=== PATIENT | female | born 1950 | race Caucasian/White ===

== ENCOUNTER 2022-06-06 16:45 | Inpatient (IN) | payer BC, OTHER ==
[~2022-06-06] VITALS: Ht 154.9 cm; Wt 72.6 kg
[2022-06-06 16:45] VITALS: BP_SYST 132
--- NOTE | 2022-06-06 16:50 | NUR ---
PT ON [facility] AWAITING ROOM ASSIGNMENT.
--- NOTE | 2022-06-06 17:45 | NUR ---
Patient to ER bed 4 to gown for evaluation. Side rails up.
--- NOTE | 2022-06-06 18:00 | NUR ---
PT BIB [facility] FOR INCREASED CONFUSION AND LETHARGY S/P D/C FROM [facility] FOR ELEVATED AMMONIA PER EMS REPORT.PT'S CONDTION NO IMPROVED SINCE D/C.
[2022-06-06 18:28] LABS: BASOPHILS % (AUTO) 0.5 % (0.0-2.0); EOSINOPHILS % (AUTO) 0.4 % (0.0-4.0); HEMATOCRIT 30.8 % (36-48); LYMPHOCYTES # (AUTO) 1.3 K/uL (1.0-5.5); LYMPHOCYTES % (AUTO) 22.6 % (20.5-51.5); MEAN CORPUSCULAR HEMOGLOBIN 36 pg (27-31); MEAN CORPUSCULAR HGB CONC 36 % (32-36); MEAN CORPUSCULAR VOLUME 102 fL (79.0-98.0); MONOCYTES # (AUTO) 0.6 K/uL (0.0-1.0); MONOCYTES % (AUTO) 10.4 % (1.7-9.3); NEUTROPHILS # (AUTO) 3.7 K/uL (1.8-7.7); NEUTROPHILS % (AUTO) 66.1 % (40.0-70.0); RED BLOOD CELL COUNT(AUTO) 3.03 MIL/uL (4.2-6.2); RED CELL DISTRIBUTION WIDTH 17.6 % (9.0-15.0); WHITE BLOOD COUNT (AUTO) 5.6 K/uL (4.8-10.8)
[2022-06-06 18:31] LABS: ANION GAP 8 (5-15); CALCIUM 9.6 mg/dL (8.4-11.0); CHLORIDE 102 mmol/L (98-107); CREATININE 0.44 mg/dL (0.55-1.30); GLUCOSE 129 mg/dL (70-99); INR 1.3 (0.8-1.2); PROTHROMBIN TIME 13.3 SECS (9.5-12.5); SODIUM SERUM 132 mmol/L (136-145); UREA NITROGEN, BLOOD 14 mg/dL (8-21)
[2022-06-06 18:36] LABS: ALANINE AMINOTRANSFERASE 46 U/L (12-78); ALBUMIN 2.4 g/dL (3.4-4.8); ASPARTATE AMINOTRANSFERASE 80 U/L (10-37); TOTAL BILIRUBIN 3.4 mg/dL (0.0-1.0)
[2022-06-06 18:51] LABS: PLATELET COUNT (AUTO) 57 K/uL (130-430)
[2022-06-06] MEDS ORDERED: LACTULOSE 20 GM/30 ML UDC PO ONE (19:00)
--- NOTE | 2022-06-06 20:18 | NUR ---
Admit bed requested Patient will be admitted to care of Dr.A. SALGADO. Admitted to MEDSURG unit. Diagnosis CIRRHOSIS Inpatient (Yes or No) YES Observation (Yes or No) NO Orientation concerns or request close to nursing station (Yes or No) YES Covid Status PENDING On vent or bipap NO Isolation requirements NO Needs a sitter NO From Home (Yes or if No enter name of facility) ??? Requires Dialysis (Yes or No) NO Med Rec Completed (Yes of No) PENDING
--- NOTE | 2022-06-06 21:16 | NUR ---
pt cleaned and changed into hospital gown. bed on lowest postion. pt able to state her name. on continuous cardiac monitoring. VSS. spoke to Kathy, daughter. gave me pt information. wctm. pending bed
[2022-06-06 21:29] LABS: BILIRUBIN,URINE NEGATIVE (NEGATIVE); BLOOD, URINE NEGATIVE (NEGATIVE); CLARITY/URINE CLEAR (CLEAR); COLOR,URINE YELLOW (YELLOW); GLUCOSE,URINE NEGATIVE (NEGATIVE); KETONES,URINE NEGATIVE (NEGATIVE); LEUKOCYTE ESTERASE ,URINE NEGATIVE (NEGATIVE); NITRITE, URINE NEGATIVE (NEGATIVE); PROTEIN URINE NEGATIVE (NEGATIVE)
--- NOTE | 2022-06-06 22:51 | NUR ---
Patient will be admitted to care of GUILLERMINA Fields. Admitted to medsurg unit. Will go to room 120B. Belongings list completed. Complete and up to date summary report printed. SBAR report to be given at bedside with opportunity for questions.
--- NOTE | 2022-06-06 23:04 | NUR ---
ADMISSION NOTE Received patient from ER via gurney. Patient admitted with diagnosis of CIRRHOSIS. Patient is awake, alert, oriented X 1. Patient oriented to hospital room, call light, toileting, pain management and safety-teach back done. Patient informed that that their room number is 120B. Personal belongings checked and Belongings List documented. Call light within reach.
[2022-06-06 23:16] VITALS: BP_SYST 141
[2022-06-07] VITALS: BP_SYST 130
[2022-06-07 04:00] VITALS: BP_SYST 123
--- NOTE | 2022-06-07 04:05 | NUR ---
CONSULT: CONSULT CALLED FOR DR. ELHAM PAZ IS CERTIFIED COURT/MEDICAL INTERPRETER AT THIS MOMENT I SPOKE TO WILLIAM MIGUEL REASON FOR CONSULT: CIRRHOSIS REQUESTING CONSULT: DR. NAOMI Granados RETORT FEEDER GROUND [employer]ONE PHONE NUMBER: [phone]
[2022-06-07 07:55] VITALS: BP_SYST 133
--- NOTE | 2022-06-07 08:05 | NUR ---
Opening Note Patient is laying in bed awake. A/O x3, re oriented patient to time. No apparent distress noted. Call light within reach. Safety and fall precautions in place. All needs met.
--- NOTE | 2022-06-07 10:00 | NUR ---
Note Patient's daughter at bedside. Provided updates. Patient sitting up in bed awake. No apparent distress noted. Call light within reach. Safety and fall precautions in place. All needs met.
[2022-06-07] MEDS: RIFAXIMIN 550 MG TABLET PO SCH ×2 (10:28→21:24)
[2022-06-07] MEDS: LACTULOSE 20 GM/30 ML UDC PO SCH ×3 (10:28→20:52)
[2022-06-07] MEDS ORDERED: ONDANSETRON HCL 4 MG/2 ML VIAL IVP PRN (10:30)
[2022-06-07] MEDS ORDERED: ACETAMINOPHEN 325 MG TABLET PO PRN ×2 (10:30→11:00)
[2022-06-07] MEDS ORDERED: LORazepam 2 MG/ML VIAL IVP PRN (10:30)
[2022-06-07 11:01] LABS: BASOPHILS % (AUTO) 0.7 % (0.0-2.0); EOSINOPHILS # (AUTO) 0.1 K/uL (0.0-0.4); EOSINOPHILS % (AUTO) 1.2 % (0.0-4.0); HEMATOCRIT 31.6 % (36-48); HEMOGLOBIN 11.1 g/dL (12.0-16.0); LYMPHOCYTES # (AUTO) 1.4 K/uL (1.0-5.5); LYMPHOCYTES % (AUTO) 21.2 % (20.5-51.5); MEAN CORPUSCULAR HEMOGLOBIN 36 pg (27-31); MEAN CORPUSCULAR HGB CONC 35 % (32-36); MEAN CORPUSCULAR VOLUME 103 fL (79.0-98.0); MONOCYTES # (AUTO) 0.9 K/uL (0.0-1.0); MONOCYTES % (AUTO) 14.5 % (1.7-9.3); NEUTROPHILS % (AUTO) 62.4 % (40.0-70.0); PLATELET COUNT (AUTO) 60 K/uL (130-430); RED BLOOD CELL COUNT(AUTO) 3.05 MIL/uL (4.2-6.2); RED CELL DISTRIBUTION WIDTH 18.1 % (9.0-15.0); WHITE BLOOD COUNT (AUTO) 6.4 K/uL (4.8-10.8)
[2022-06-07 11:20] LABS: ALANINE AMINOTRANSFERASE 53 U/L (12-78); ALBUMIN 2.3 g/dL (3.4-4.8); ASPARTATE AMINOTRANSFERASE 102 U/L (10-37); CALCIUM 9.1 mg/dL (8.4-11.0); CREATININE 0.74 mg/dL (0.55-1.30); GLUCOSE 162 mg/dL (70-99); TOTAL BILIRUBIN 3.9 mg/dL (0.0-1.0); UREA NITROGEN, BLOOD 10 mg/dL (8-21)
[2022-06-07 11:51] VITALS: BP_SYST 109
[2022-06-07 12:09] LABS: CHLORIDE 102 mmol/L (98-107); POTASSIUM 3.4 mmol/L (3.5-5.1); SODIUM SERUM 133 mmol/L (136-145)
[2022-06-07 12:11] LABS: ANION GAP 9 (5-15)
--- NOTE | 2022-06-07 13:20 | NUR ---
Note Spoke with Sierra from radiology, patient will be NPO after midnight.
[2022-06-07] MEDS ORDERED: NORMAL SALINE 5 ML DISP.SYRIN IVF SCH (14:00)
[2022-06-07 16:00] VITALS: BP_SYST 112
--- NOTE | 2022-06-07 16:24 | NUR ---
Dietitian Recommendations * Continue Regular diet * Encourage increase PO intakes * Yogurt TID w/ meals * No further dietary restrictions d/t suboptimal PO intakes LP, MS, RD Please refer to Nutrition Assessment for details. Addendum: 06/07/22 at [address] Amended: Links added.
--- NOTE | 2022-06-07 18:50 | NUR ---
Closing Notes Patient is sitting up in bed awake watching television. No apparent distress noted. Call light within reach. Safety and fall precautions in place. All needs met. Will endorse care to overnight babysitter GUILLERMINA salazar.
[2022-06-07] MEDS: NORMAL SALINE 5 ML DISP.SYRIN IVF SCH ×2 (19:25→21:24)
[2022-06-07 20:00] VITALS: BP_SYST 131
[2022-06-08 00:45] VITALS: BP_SYST 130
[2022-06-08 04:00] VITALS: BP_SYST 126
[2022-06-08] MEDS: NORMAL SALINE 5 ML DISP.SYRIN IVF SCH ×3 (06:12→20:53)
--- NOTE | 2022-06-08 06:29 | NUR ---
PATIENT WAS STILL A LITTLE BIT CONFUSE AD APPEARS GROGGY. AAOX2-3. APPEARS WEAK AND WOBBLY. ASLEEP AT THIS TIME. PIV INTACT AND PATENT. FLUSHING WELL. KEPT WARM AND COMFORTABLE. ALL NEEDS ATTENDED. CALL LIGHT PLACED WITHIN REACH. FAMILY CAME LAST NIGHT. SPOKE TO THE DAUGHTER AND UPDATED ABOUT THE PATIENT'S CONDITION. MONITORED CLOSELY.
[2022-06-08 07:52] LABS: ALANINE AMINOTRANSFERASE 49 U/L (12-78); ALBUMIN 2.2 g/dL (3.4-4.8); ANION GAP 7 (5-15); ASPARTATE AMINOTRANSFERASE 99 U/L (10-37); CALCIUM 9.1 mg/dL (8.4-11.0); CHLORIDE 104 mmol/L (98-107); CREATININE 0.48 mg/dL (0.55-1.30); GLUCOSE 100 mg/dL (70-99); POTASSIUM 3.4 mmol/L (3.5-5.1); SODIUM SERUM 136 mmol/L (136-145); UREA NITROGEN, BLOOD 10 mg/dL (8-21)
[2022-06-08 07:55] LABS: BASOPHILS % (AUTO) 0.9 % (0.0-2.0); EOSINOPHILS # (AUTO) 0.1 K/uL (0.0-0.4); EOSINOPHILS % (AUTO) 1.2 % (0.0-4.0); HEMATOCRIT 28.9 % (36-48); HEMOGLOBIN 10.4 g/dL (12.0-16.0); LYMPHOCYTES # (AUTO) 1.6 K/uL (1.0-5.5); LYMPHOCYTES % (AUTO) 32.2 % (20.5-51.5); MEAN CORPUSCULAR HEMOGLOBIN 36 pg (27-31); MEAN CORPUSCULAR HGB CONC 36 % (32-36); MEAN CORPUSCULAR VOLUME 101 fL (79.0-98.0); MONOCYTES # (AUTO) 0.7 K/uL (0.0-1.0); MONOCYTES % (AUTO) 14.6 % (1.7-9.3); NEUTROPHILS # (AUTO) 2.5 K/uL (1.8-7.7); NEUTROPHILS % (AUTO) 51.1 % (40.0-70.0); PLATELET COUNT (AUTO) 54 K/uL (130-430); RED BLOOD CELL COUNT(AUTO) 2.85 MIL/uL (4.2-6.2); RED CELL DISTRIBUTION WIDTH 17.3 % (9.0-15.0)
[2022-06-08 08:10] VITALS: BP_SYST 115
--- NOTE | 2022-06-08 08:10 | NUR ---
Opening Notes Patient is sitting up in bed awake. A/O x3, re-oriented patient to time. No apparent distress noted. Call light within reach. Safety and fall precautions in place. All needs met. Received report from Trenton SARMIENTO.
[2022-06-08] MEDS: LACTULOSE 20 GM/30 ML UDC PO SCH ×3 (10:02→20:52)
[2022-06-08] MEDS: RIFAXIMIN 550 MG TABLET PO SCH ×2 (10:02→20:52)
[2022-06-08 11:06] LABS: HEPATITIS A AB, IgM Negative (Negative); HEPATITIS B CORE AB, IgM Negative (Negative); HEPATITIS B SURFACE AG Negative (Negative)
[2022-06-08 12:00] VITALS: BP_SYST 125
[2022-06-08 16:00] VITALS: BP_SYST 115
--- NOTE | 2022-06-08 18:45 | NUR ---
Closing Notes Assisted patient with hygiene needs throughout shift. Patient is sitting up in bed awake. Family at bedside. Call light within reach. Safety and fall precautions in place. All needs met. Will endorse care to doughmaker RN.
--- NOTE | 2022-06-08 18:58 | NUR ---
PHYSICAL THERAPY CO-SIGN The Physical Therapy Progress Notes documented by Extractor Plant Operator have been reviewed. Reviewed/Co-Signed by: Ember Humphries PT Documentation Done by:STACI CARLSON MOLECULAR BIOLOGY SCIENTIST Addendum: 06/08/22 at 1858 by Ember Humphries PT Amended: Links added.
[2022-06-08 20:00] VITALS: BP_SYST 120
[2022-06-09] VITALS: BP_SYST 107
[2022-06-09 04:00] VITALS: BP_SYST 110
--- NOTE | 2022-06-09 05:59 | NUR ---
PATIENT APPEARS WEAK. ASSISTED BY FIELD MARKETING REPRESENTATIVE TO THE RESTROOM. SLEPT LATE LAST NIGHT. STABLE. NO DISTRESS OR DISCOMFORT NOTED. SL IN PLACE, INTACT AND FLUSHING WELL. KEPT WARM AND COMFORTABLE. ALL NEEDS ATTENDED. CALL LIGHT PLACED WITHIN REACH. FALL AND SAFETY PRECAUTION REINFORCED. MONITORED CLOSELY.
[2022-06-09] MEDS: NORMAL SALINE 5 ML DISP.SYRIN IVF SCH ×3 (06:04→21:13)
[2022-06-09 07:21] LABS: BASOPHILS # (AUTO) 0.1 K/uL (0.0-0.2); BASOPHILS % (AUTO) 1.1 % (0.0-2.0); EOSINOPHILS # (AUTO) 0.1 K/uL (0.0-0.4); EOSINOPHILS % (AUTO) 1.2 % (0.0-4.0); HEMATOCRIT 28.5 % (36-48); HEMOGLOBIN 10.2 g/dL (12.0-16.0); LYMPHOCYTES # (AUTO) 1.8 K/uL (1.0-5.5); MEAN CORPUSCULAR HEMOGLOBIN 36 pg (27-31); MEAN CORPUSCULAR HGB CONC 36 % (32-36); MEAN CORPUSCULAR VOLUME 102 fL (79.0-98.0); MONOCYTES # (AUTO) 0.9 K/uL (0.0-1.0); MONOCYTES % (AUTO) 15.9 % (1.7-9.3); NEUTROPHILS # (AUTO) 2.9 K/uL (1.8-7.7); NEUTROPHILS % (AUTO) 50.8 % (40.0-70.0); PLATELET COUNT (AUTO) 62 K/uL (130-430); RED CELL DISTRIBUTION WIDTH 17.8 % (9.0-15.0); WHITE BLOOD COUNT (AUTO) 5.7 K/uL (4.8-10.8)
[2022-06-09 08:12] VITALS: BP_SYST 131
[2022-06-09 08:25] LABS: ALANINE AMINOTRANSFERASE 47 U/L (12-78); ALBUMIN 2.1 g/dL (3.4-4.8); ANION GAP 7 (5-15); ASPARTATE AMINOTRANSFERASE 97 U/L (10-37); CHLORIDE 104 mmol/L (98-107); CREATININE 0.53 mg/dL (0.55-1.30); GLUCOSE 113 mg/dL (70-99); POTASSIUM 3.6 mmol/L (3.5-5.1); SODIUM SERUM 136 mmol/L (136-145); TOTAL BILIRUBIN 2.8 mg/dL (0.0-1.0); UREA NITROGEN, BLOOD 15 mg/dL (8-21)
[2022-06-09] MEDS: LACTULOSE 20 GM/30 ML UDC PO SCH ×3 (08:52→21:11)
[2022-06-09] MEDS: RIFAXIMIN 550 MG TABLET PO SCH ×2 (10:14→21:12)
[2022-06-09 12:02] VITALS: BP_SYST 128
[2022-06-09 12:04] VITALS: BP_SYST 129
--- NOTE | 2022-06-09 13:45 | NUR ---
DC PLANNING Order for dc home with home health. Spoke with pt at bedside & discussed dc planning does not want SNF. Is agreeable with home health with no preference. States her dtr is at home & will assist her at home, has fww. This am faxed order to [facility] & received msfranco Sherwood CM aware & working on home health. Later in afternoon received updated home health order & faxed to [facility]. [facility] AT[facility]INSON today Arabella, ph [phone]. Addendum: 06/09/22 at 1423 by Nickie Tim RN Received call from [facility] [place], working on home health, order for dc planning for home with home health not dc home with home health.
[2022-06-09 18:39] VITALS: BP_SYST 125
--- NOTE | 2022-06-10 07:21 | NUR ---
PHYSICAL THERAPY CO-SIGN The Physical Therapy Progress Notes documented by Chemical Unit Operator have been reviewed. Reviewed/Co-Signed by: Jimmie Rowland Documentation Done by: RISHABH CARLSON PTA Addendum: 06/10/22 at 0721 by Jimmie Rowland PT Amended: Links added.
[2022-06-10 08:00] VITALS: BP_SYST 121
[2022-06-10] MEDS: LACTULOSE 20 GM/30 ML UDC PO SCH (09:01)
[2022-06-10] MEDS: RIFAXIMIN 550 MG TABLET PO SCH (09:02)
[2022-06-10 09:25] LABS: BASOPHILS # (AUTO) 0.1 K/uL (0.0-0.2); BASOPHILS % (AUTO) 1.3 % (0.0-2.0); EOSINOPHILS # (AUTO) 0.1 K/uL (0.0-0.4); EOSINOPHILS % (AUTO) 1.6 % (0.0-4.0); HEMATOCRIT 30.1 % (36-48); HEMOGLOBIN 10.5 g/dL (12.0-16.0); LYMPHOCYTES # (AUTO) 1.8 K/uL (1.0-5.5); LYMPHOCYTES % (AUTO) 32.9 % (20.5-51.5); MEAN CORPUSCULAR HEMOGLOBIN 36 pg (27-31); MEAN CORPUSCULAR HGB CONC 35 % (32-36); MEAN CORPUSCULAR VOLUME 103 fL (79.0-98.0); MONOCYTES # (AUTO) 0.8 K/uL (0.0-1.0); MONOCYTES % (AUTO) 14.7 % (1.7-9.3); NEUTROPHILS # (AUTO) 2.7 K/uL (1.8-7.7); NEUTROPHILS % (AUTO) 49.5 % (40.0-70.0); PLATELET COUNT (AUTO) 65 K/uL (130-430); RED BLOOD CELL COUNT(AUTO) 2.94 MIL/uL (4.2-6.2); RED CELL DISTRIBUTION WIDTH 17.7 % (9.0-15.0); WHITE BLOOD COUNT (AUTO) 5.5 K/uL (4.8-10.8)
[2022-06-10 10:17] LABS: ALANINE AMINOTRANSFERASE 57 U/L (12-78); ALBUMIN 2.1 g/dL (3.4-4.8); ANION GAP 7 (5-15); ASPARTATE AMINOTRANSFERASE 139 U/L (10-37); CALCIUM 8.8 mg/dL (8.4-11.0); CHLORIDE 104 mmol/L (98-107); CREATININE 0.45 mg/dL (0.55-1.30); GLUCOSE 95 mg/dL (70-99); POTASSIUM 4.2 mmol/L (3.5-5.1); SODIUM SERUM 134 mmol/L (136-145); TOTAL BILIRUBIN 2.8 mg/dL (0.0-1.0); UREA NITROGEN, BLOOD 17 mg/dL (8-21)
[2022-06-10] MEDS ORDERED: RIFA550T5 PO (11:24)
[2022-06-10] MEDS ORDERED: Lactulose PO (11:24)
[2022-06-10 12:00] VITALS: BP_SYST 120
[2022-06-10 15:19] VITALS: BP_SYST 113
--- NOTE | 2022-06-10 16:00 | NUR ---
D/C Patient Patient given medication reconciliation form and D/C instructions. Exit Care provided, all needs met throughout shift. Patient verbalized understanding. Ambulatory with steady gait for discharge to home. Patient in stable condition, ID band removed. IV catheter removed, intact and dressing applied, no active bleeding. Patient educated on pain management. All belongings sent with patient.
--- NOTE | 2022-06-13 07:00 | NUR ---
PHYSICAL THERAPY CO-SIGN The Physical Therapy Progress Notes documented by Filter Tip Inspector have been reviewed. Reviewed/Co-Signed by: Jimmie Rowland Documentation Done by: RISHABH CARLSON PTA Addendum: 06/13/22 at 0701 by Jimmie Rowland PT Amended: Links added.
== END 2022-06-10 16:05 | disposition home health service (06) | DRG 441 ==
LOC: SED 16:45 → SMU 19:39
PROVIDERS: ADMIT Preventive Medicine Preventive Medicine/Occupational Environmental Medicine; ATTEND Preventive Medicine Preventive Medicine/Occupational Environmental Medicine
DX: K72.90 Hepatic failure, unspecified without coma (principal); E43 Unspecified severe protein-calorie malnutrition; D68.59 Other primary thrombophilia; E87.1 Hypo-osmolality and hyponatremia; B19.20 Unspecified viral hepatitis C without hepatic coma; D69.6 Thrombocytopenia, unspecified; E87.6 Hypokalemia; K74.60 Unspecified cirrhosis of liver; Z20.822 Contact with and (suspected) exposure to COVID-19; R73.9 Hyperglycemia, unspecified; E66.9 Obesity, unspecified; D64.9 Anemia, unspecified; E88.09 Other disorders of plasma-protein metabolism, not elsewhere classified; Z79.899 Other long term (current) drug therapy; Z68.30 Body mass index [BMI] 30.0-30.9, adult
CPT/HCPCS: 36415; 70450-TC; 76376; 76700-TC; 80053; 80074; 81003; 82105; 82140; 83605; 85025; 85610-TC; 93005; 97110-GP; 97116-GP; 97530-GP; 99285

== ENCOUNTER 2022-07-12 19:04 | Inpatient (IN) | payer OTHER ==
[~2022-07-12] VITALS: Ht 154.9 cm; Wt 77.1 kg
[~2022-07-12 19:04] MED LIST: Lactulose PO; RIFA550T5 PO
[2022-07-12 20:02] VITALS: BP_SYST 129
--- NOTE | 2022-07-12 20:19 | NUR ---
Pt c/o abd pain with nausea and some dizziness, denies vomiting or diarrhea. Pt c/o abd "bloating" as well. EKG done in triage. Pt waiting in waiting room with family members. MD assessed pt in triage.
[2022-07-12 20:42] LABS: ALANINE AMINOTRANSFERASE 26 U/L (12-78); ALBUMIN 2.2 g/dL (3.4-4.8); ANION GAP 5 (5-15); ASPARTATE AMINOTRANSFERASE 67 U/L (10-37); CALCIUM 9.1 mg/dL (8.4-11.0); CHLORIDE 106 mmol/L (98-107); CREATININE 0.68 mg/dL (0.55-1.30); GLUCOSE 92 mg/dL (70-99); LIPASE 200 U/L (73-393); POTASSIUM 3.9 mmol/L (3.5-5.1); SODIUM SERUM 138 mmol/L (136-145); TOTAL BILIRUBIN 3.5 mg/dL (0.0-1.0); UREA NITROGEN, BLOOD 12 mg/dL (8-21)
[2022-07-12 20:43] LABS: BASOPHILS % (AUTO) 0.8 % (0.0-2.0); EOSINOPHILS # (AUTO) 0.1 K/uL (0.0-0.4); EOSINOPHILS % (AUTO) 2.2 % (0.0-4.0); HEMATOCRIT 31.7 % (36-48); LYMPHOCYTES # (AUTO) 1.6 K/uL (1.0-5.5); LYMPHOCYTES % (AUTO) 34.7 % (20.5-51.5); MEAN CORPUSCULAR HEMOGLOBIN 36 pg (27-31); MEAN CORPUSCULAR HGB CONC 35 % (32-36); MEAN CORPUSCULAR VOLUME 105 fL (79.0-98.0); MONOCYTES # (AUTO) 0.7 K/uL (0.0-1.0); NEUTROPHILS # (AUTO) 2.2 K/uL (1.8-7.7); NEUTROPHILS % (AUTO) 47.3 % (40.0-70.0); PLATELET COUNT (AUTO) 58 K/uL (130-430); RED BLOOD CELL COUNT(AUTO) 3.03 MIL/uL (4.2-6.2); RED CELL DISTRIBUTION WIDTH 19.4 % (9.0-15.0); WHITE BLOOD COUNT (AUTO) 4.7 K/uL (4.8-10.8)
--- NOTE | 2022-07-12 23:29 | NUR ---
Dr. Kerr at bedside for evaluation.
[2022-07-12] MEDS ORDERED: ONDANSETRON HCL 4 MG/2 ML VIAL IVP ONE (23:45)
[2022-07-12] MEDS ORDERED: NS 250 ML IV ONE (23:45)
[2022-07-12] MEDS ORDERED: MORPHINE 4 MG INJ. 4 MG/ML VIAL IVP ONE (23:45)
[2022-07-13] MEDS ORDERED: cefTRIAXone 2 GM VIAL ONE (00:21)
--- NOTE | 2022-07-13 00:40 | NUR ---
Pt pain addressed. Pt medicated per MD order. No signs of resp distress and even and unlabored respirations. Safety precautions in place.
[2022-07-13] MEDS ORDERED: NS 500 ML IV ONE (01:30)
--- NOTE | 2022-07-13 01:33 | NUR ---
Urine collected and sent to lab.
[2022-07-13 02:02] LABS: BILIRUBIN,URINE 1+ (NEGATIVE); BLOOD, URINE NEGATIVE (NEGATIVE); COLOR,URINE YELLOW (YELLOW); GLUCOSE,URINE NEGATIVE (NEGATIVE); KETONES,URINE TRACE (NEGATIVE); LEUKOCYTE ESTERASE ,URINE 1+ (NEGATIVE); NITRITE, URINE NEGATIVE (NEGATIVE); PH,URINE 5.5 (5.0-8.0); PROTEIN URINE NEGATIVE (NEGATIVE); UROBILINOGEN,URINE 0.2 (0.2-1.0)
[2022-07-13 02:13] LABS: CLARITY/URINE HAZY (CLEAR)
[2022-07-13 02:15] LABS: BACTERIA,URINE MANY /HPF (None Seen); RBC,URINE 0-3 /HPF (0-3)
--- NOTE | 2022-07-13 03:15 | NUR ---
Pt ambulated to restroom with ease. Now back in bed with safety precautions in place. Pt now resting in bed. No signs of resp distress. Even and unloabored respirations.
[2022-07-13] MEDS ORDERED: LACT10SO6 PO (03:53)
[2022-07-13] MEDS ORDERED: RIFA200T10 PO (03:53)
[2022-07-13] MEDS ORDERED: LEVO25TA7 PO (03:53)
--- NOTE | 2022-07-13 04:34 | NUR ---
Admit bed requested Patient will be admitted to care of Dr. Whitten Admitted to Tele unit. Diagnosis Cirrhosis Inpatient (Yes or No) yes Observation (Yes or No) no Orientation concerns or request close to nursing station (Yes or No) no Covid Status negative On vent or bipap no Isolation requirements no Needs a sitter no From Home (Yes or if No enter name of facility) yes Requires Dialysis (Yes or No) no Med Rec Completed (Yes of No) yes
[2022-07-13] MEDS ORDERED: ONDANSETRON HCL 4 MG/2 ML VIAL IVP PRN (04:45)
--- NOTE | 2022-07-13 06:05 | NUR ---
Patient will be admitted to care of Dr. Whitten. Admitted to telemetry unit. Will go to room 112B. Belongings list completed. Complete and up to date summary report printed. SBAR report given to Veronica SARMIENTO at bedside with opportunity for questions.
[2022-07-13 06:21] VITALS: BP_SYST 154
[2022-07-13 08:00] VITALS: BP_SYST 119
[2022-07-13] MEDS: MORPHINE 2 MG/ML INJ. SYRINGE IVP PRN ×3 (08:08→21:19)
--- NOTE | 2022-07-13 10:39 | NUR ---
CONSULTATION PAGED REASON FOR CONSULTATION:ABDOMIBNAL PAIN WAS CONSULT CALLED?Y -PERSON WHO WAS NOTIFIED:KENYA CONSULTING PHYSICIAN:REJI NICOLE (ANA BURCIAGA CARDIOPULMONARY TECHNOLOGIST) COBBLER APPRENTICE SPECIALTY:GI COBBLER APPRENTICE PHONE NUMBER:[phone] REQUESTING PHYSICIAN:JACK ENCARNACION
[2022-07-13 11:27] VITALS: BP_SYST 114
[2022-07-13] MEDS ORDERED: PANTOPRAZOLE SODIUM 40 MG TAB PO ONE (12:00)
[2022-07-13] MEDS ORDERED: DICYCLOMINE HCL 10 MG CAPSULE PO ONE ×2 (12:00→21:00)
[2022-07-13] MEDS ORDERED: SUCRALFATE 1 GM TABLET PO ONE (12:15)
[2022-07-13] MEDS ORDERED: SUCR1TAB78 PO (12:31)
[2022-07-13 14:10] VITALS: BP_SYST 114
[2022-07-13] MEDS: SUCRALFATE 1 GM TABLET PO SCH ×2 (15:40→21:18)
[2022-07-13 16:35] VITALS: BP_SYST 138
[2022-07-13 20:00] VITALS: BP_SYST 116
[2022-07-14] MEDS ORDERED: cefTRIAXone 1 GM IVPB PREMIX 50 ML IV SCH (01:00)
[2022-07-14] MEDS: MORPHINE 2 MG/ML INJ. SYRINGE IVP PRN ×3 (01:29→09:48)
[2022-07-14 06:39] VITALS: BP_SYST 118
--- NOTE | 2022-07-14 06:43 | NUR ---
CLOSING NOTE PATIENT IN BED, RESTING AT THIS TIME. NO S/S OF ACUTE DISTRESS. BREATHING EVEN AND UNLABORED. IV SITE IS PATENT, NO SIGNS OF INFILTRATION OR INFECTION NOTED. ALL NEEDS MET THROUGHOUT SHIFT. FALL, SAFETY PRECAUTIONS MAINTAINED THROUGHOUT SHIFT. WILL CONTINUE TO MONITOR UNTIL PATIENT CARE IS ENDORSED TO ONCOMING DAYSHIFT NURSE.
[2022-07-14 08:00] VITALS: BP_SYST 101
[2022-07-14 08:09] LABS: BASOPHILS % (AUTO) 0.8 % (0.0-2.0); EOSINOPHILS # (AUTO) 0.1 K/uL (0.0-0.4); EOSINOPHILS % (AUTO) 2.9 % (0.0-4.0); HEMATOCRIT 28.5 % (36-48); HEMOGLOBIN 10.2 g/dL (12.0-16.0); LYMPHOCYTES # (AUTO) 1.6 K/uL (1.0-5.5); LYMPHOCYTES % (AUTO) 38.9 % (20.5-51.5); MEAN CORPUSCULAR HEMOGLOBIN 38 pg (27-31); MEAN CORPUSCULAR HGB CONC 36 % (32-36); MEAN CORPUSCULAR VOLUME 105 fL (79.0-98.0); MONOCYTES # (AUTO) 0.5 K/uL (0.0-1.0); MONOCYTES % (AUTO) 12.6 % (1.7-9.3); NEUTROPHILS # (AUTO) 1.9 K/uL (1.8-7.7); NEUTROPHILS % (AUTO) 44.8 % (40.0-70.0); PLATELET COUNT (AUTO) 50 K/uL (130-430); RED BLOOD CELL COUNT(AUTO) 2.72 MIL/uL (4.2-6.2); RED CELL DISTRIBUTION WIDTH 18.7 % (9.0-15.0); WHITE BLOOD COUNT (AUTO) 4.1 K/uL (4.8-10.8)
[2022-07-14 08:20] LABS: ALANINE AMINOTRANSFERASE 24 U/L (12-78); ALBUMIN 1.9 g/dL (3.4-4.8); ANION GAP 2 (5-15); ASPARTATE AMINOTRANSFERASE 65 U/L (10-37); CALCIUM 8.8 mg/dL (8.4-11.0); CHLORIDE 105 mmol/L (98-107); CREATININE 0.62 mg/dL (0.55-1.30); GLUCOSE 99 mg/dL (70-99); SODIUM SERUM 138 mmol/L (136-145); TOTAL BILIRUBIN 3.3 mg/dL (0.0-1.0); UREA NITROGEN, BLOOD 7 mg/dL (8-21)
[2022-07-14] MEDS ORDERED: PANTOPRAZOLE SODIUM 40 MG TAB PO SCH (09:00)
[2022-07-14] MEDS: SUCRALFATE 1 GM TABLET PO SCH ×2 (09:46→16:31)
[2022-07-14 12:00] VITALS: BP_SYST 115
[2022-07-14 15:36] VITALS: BP_SYST 115
== END 2022-07-14 17:00 | disposition home or self-care (01) | DRG 433 ==
LOC: SED 19:04 → STU 07-13 04:31
PROVIDERS: ADMIT Internal Medicine; ATTEND Internal Medicine
DX: K70.31 Alcoholic cirrhosis of liver with ascites (principal); E44.0 Moderate protein-calorie malnutrition; K52.9 Noninfective gastroenteritis and colitis, unspecified; Z20.822 Contact with and (suspected) exposure to COVID-19; E03.9 Hypothyroidism, unspecified; E78.5 Hyperlipidemia, unspecified; Z80.0 Family history of malignant neoplasm of digestive organs; Z90.49 Acquired absence of other specified parts of digestive tract
CPT/HCPCS: 36415; 76376; 80053; 81000; 83690; 84484; 85025; 87040; 87086; 87186-TC; 93005; 96365; 96375; 99285; G0378; J0696; J2270; J2405

== ENCOUNTER 2023-03-16 14:12 | Inpatient (IN) | payer OTHER ==
[~2023-03-16] VITALS: Ht 154.9 cm; Wt 74.8 kg
[~2023-03-16 14:12] MED LIST changes: +HYDR-3908 PO; +LEVO25TA7 PO; -Lactulose PO; +RIFA200T10 PO; +SUCR1TAB2 PO
--- NOTE | 2023-03-16 14:15 | NUR ---
Placed in room 08 . Placed on ekg monitor, blood pressure machine and pulse oximeter. To gown for exam. Side rails up.
[2023-03-16 14:20] VITALS: BP_SYST 94
--- NOTE | 2023-03-16 14:20 | NUR ---
Pt BIB ambulance from home. C/O L hip pain and L arm pain related to mechanical fall from home 2 days ago and today. Pt states to have taken a norco an hour ago. NS started by paramedics en route to hospital. Glucose check 97. Pt AAOX4. Pt speaking full complete sentences. Skin dry and intact. Pt in bed in gown with side rails up. BP 94/47 at this time.
--- NOTE | 2023-03-16 14:20 | NUR ---
Christel kennedy in [facility] - 03/16/23 at 1628 by SDEDAFJ Placed in room 08 . Placed on ekg monitor tech, blood pressure machine and pulse oximeter. To gown for exam. Side rails up.
[2023-03-16] MEDS ORDERED: LACT10SO6 PO (14:27)
[2023-03-16] MEDS ORDERED: MECL-160 PO (14:27)
[2023-03-16] MEDS ORDERED: SPIR50TA5 PO (14:27)
[2023-03-16] MEDS ORDERED: TRAZ50TA54 (14:29)
[2023-03-16] MEDS ORDERED: FERR325T30 (14:29)
[2023-03-16 14:40] LABS: HEMATOCRIT 27.8 % (36-48); HEMOGLOBIN 9.2 g/dL (12.0-16.0); MEAN CORPUSCULAR HEMOGLOBIN 35 pg (27-31); MEAN CORPUSCULAR HGB CONC 33 % (32-36); MEAN CORPUSCULAR VOLUME 104 fL (79.0-98.0); RED BLOOD CELL COUNT(AUTO) 2.68 MIL/uL (4.2-6.2); RED CELL DISTRIBUTION WIDTH 21.6 % (9.0-15.0); WHITE BLOOD COUNT (AUTO) 16.3 K/uL (4.8-10.8)
[2023-03-16 14:52] LABS: ANION GAP 11 (5-15); CALCIUM 8.7 mg/dL (8.4-11.0); CHLORIDE 105 mmol/L (98-107); CREATININE 1.68 mg/dL (0.55-1.30); GLUCOSE 112 mg/dL (70-99); UREA NITROGEN, BLOOD 63 mg/dL (8-21)
[2023-03-16 14:53] LABS: INR 2.1 (0.8-1.2); PROTHROMBIN TIME 21.2 SECS (9.5-12.5)
[2023-03-16 14:54] LABS: PLATELET COUNT (AUTO) 37 K/uL (130-430)
[2023-03-16 15:09] LABS: BAND % (MANUAL) 19 % (0-6); BASOPHILS % (MANUAL) 0 % (0-2); EOSINOPHILS % (MANUAL) 0 % (0-7); LYMPHOCYTES % (MANUAL) 2 % (20-46); MONOCYTES % (MANUAL) 7 % (0-11)
[2023-03-16 15:11] LABS: ALANINE AMINOTRANSFERASE 213 U/L (12-78); ALBUMIN 1.6 g/dL (3.4-4.8); ASPARTATE AMINOTRANSFERASE 248 U/L (10-37); FREE T4 (FREE THYROXINE) 1.6 ng/dL (0.6-1.6); THYROID STIMULATING HORMONE 0.63 uIu/mL (0.34-4.82); TOTAL BILIRUBIN 6.3 mg/dL (0.0-1.0)
--- NOTE | 2023-03-16 15:19 | NUR ---
Dr Badillo notified about pt's lactic acid 5.6 and WBC 16.3, requested fluids and antibiotics, per Dr Badillo due to Hx of cirrhosis , no fluids needed at this time, awaiting for antibiotics order, will cont to monitor.
[2023-03-16] MEDS ORDERED: PIPERACILLIN/TAZO 4.5GM/DEX-IS 100 ML IV SCH (15:30)
[2023-03-16] MEDS ORDERED: ALBUMIN HUMAN 5% 250 ML IV ONE (15:30)
[2023-03-16 15:40] LABS: BILIRUBIN,URINE 2+ (NEGATIVE); CLARITY/URINE CLOUDY (CLEAR); COLOR,URINE ORANGE (YELLOW); GLUCOSE,URINE TRACE (NEGATIVE); KETONES,URINE TRACE (NEGATIVE); LEUKOCYTE ESTERASE ,URINE TRACE (NEGATIVE); NITRITE, URINE POSITIVE (NEGATIVE); PROTEIN URINE TRACE (NEGATIVE)
[2023-03-16 15:46] LABS: BLOOD, URINE TRACE (NEGATIVE)
[2023-03-16] MEDS ORDERED: PIPERACILLIN/TAZO 4.5GM/DEX-IS 100 ML IV ONE (16:00)
[2023-03-16] MEDS ORDERED: VANCOMYCIN HCL 1,000 MG in NS 250 ML IV ONE (16:00)
--- NOTE | 2023-03-16 16:05 | NUR ---
Admit bed requested Patient will be admitted to care of [Bhavik ]. Admitted to [ Tele ] unit. Diagnosis [urosepsis] Inpatient (Yes or No) [Yes] Observation (Yes or No) [No] Orientation concerns or request close to nursing station (Yes or No) [No] Covid Status [] On vent or bipap [n/a] Isolation requirements [n/a] Needs a sitter [n/a] From Home (Yes or if No enter name of facility) [yes] Requires Dialysis (Yes or No) [n/a] Med Rec Completed (Yes of No) [yes]
[2023-03-16 16:15] LABS: BACTERIA,URINE MODERATE /HPF (None Seen)
--- NOTE | 2023-03-16 16:25 | NUR ---
Fluids started NS 50cc/hr as ordered by Dr Gutierres, will cont to monitor
[2023-03-16] MEDS ORDERED: NACL 0.9% 1,000 ML IV ONE (16:45)
--- NOTE | 2023-03-16 17:02 | NUR ---
Pt A&Ox4, VSS, respirations even and unlabored
[2023-03-16] MEDS ORDERED: ASPIRIN 81 MG TABLET(ECOTRIN) PO ONE (17:15)
--- NOTE | 2023-03-16 17:27 | NUR ---
EKG repeated due to elevated troponin as ordered by Dr Badillo, aspirin administered, will cont to monitor.
--- NOTE | 2023-03-16 17:57 | NUR ---
Patient will be admitted to care of Dr Gutierres. Admitted to Tele unit. Will go to room 104A. Belongings list completed. Complete and up to date summary report printed. SBAR report to be given at bedside with opportunity for questions.
--- NOTE | 2023-03-16 17:57 | NUR ---
OPENING NOTES: RECEIVED BEDSIDE SBAR FROM ER NURSE NO S/S OF ANY DISTRESS , NON LABOR BREATHING, SOME BRUISING TO RT AND LT HIP S/P FALL, LT ARM AND LT HIP PAIN, IV INTACT, TELE MONITOR AT APPLIED SAFETY CHECKS DONE, WILL GIVE PM SHIFT NURSE BEDSIDE SBAR.
[2023-03-16 18:06] VITALS: BP_SYST 123
--- NOTE | 2023-03-16 18:55 | NUR ---
CLOSING NOTES PATIENT REMAIN STABLE, NO S/S OF ANY DISTRESS, NON LABOR BREATHING, IV INTACT, BED AT LOW AND LOCKED POSITION, PATIENT RESTING IN BED, CALL LIGHT IN REACH, ALL SAFETY CHECKS DONE, WILL GIVE PM SHIFT NURSE BEDSIDE SBAR,
--- NOTE | 2023-03-16 19:20 | NUR ---
CHANGE OF SHIOFT; endorsed by day shift S/P fall at home. DX Urosepsis/NSTEMI. just came in from ER. Dr. Gutierres here, made aware of high troponin and some abnormal labs. fall risk precaution. family at bedside. call light within reach.
[2023-03-16 20:00] VITALS: BP_SYST 94
[2023-03-16] MEDS ORDERED: RIFAXIMIN 550 MG TABLET PO ONE (20:00)
[2023-03-16 20:01] VITALS: BP_SYST 91
--- NOTE | 2023-03-16 20:20 | NUR ---
CONSULTATION PAGED/CALLED Reason for Consultation: TROPONIN Person Who was Notified: DR Shannan SALGADO VIA TEXT Consulting Physician: Shannan SALGADO Block Handler Specialty: Ordering Physician: CHASTITY
--- NOTE | 2023-03-16 21:30 | NUR ---
"NOTES:| called Dr. Shannan Kam for critical Troponin result 3990, ordered EKG and Troponin in am."
--- NOTE | 2023-03-16 21:45 | NUR ---
NOTES: BS checked 95, hs snack given. IVF continuous via left wrist area, long cath to osd.
--- NOTE | 2023-03-16 23:30 | NUR ---
NOTES: pt. checked for any bowel movement, no stool. repositioned.
[2023-03-17 00:45] VITALS: BP_SYST 101
--- NOTE | 2023-03-17 02:00 | NUR ---
NOTES: condition observed. pt. sleeping. IVF continuous.
--- NOTE | 2023-03-17 04:30 | NUR ---
NOTES: pt. awakened, feeling hungry, jello given. repositioned, checked skin with big bruise on her rt. armpit/lateral upper chest and small bruise on rt. thigh. pt. hurts on her left hip on movement. IVF continuous. call light at bedside. bed alarm on.
[2023-03-17 05:33] LABS: BASOPHILS # (AUTO) 0.1 K/uL (0.0-0.2); BASOPHILS % (AUTO) 0.3 % (0.0-2.0); EOSINOPHILS # (AUTO) 0.6 K/uL (0.0-0.4); EOSINOPHILS % (AUTO) 3.5 % (0.0-4.0); HEMATOCRIT 25.8 % (36-48); HEMOGLOBIN 8.6 g/dL (12.0-16.0); LYMPHOCYTES # (AUTO) 0.8 K/uL (1.0-5.5); LYMPHOCYTES % (AUTO) 4.4 % (20.5-51.5); MEAN CORPUSCULAR HEMOGLOBIN 35 pg (27-31); MEAN CORPUSCULAR HGB CONC 33 % (32-36); MEAN CORPUSCULAR VOLUME 103 fL (79.0-98.0); MONOCYTES % (AUTO) 11.2 % (1.7-9.3); NEUTROPHILS # (AUTO) 14.7 K/uL (1.8-7.7); RED CELL DISTRIBUTION WIDTH 21.6 % (9.0-15.0); WHITE BLOOD COUNT (AUTO) 18.2 K/uL (4.8-10.8)
[2023-03-17 06:17] LABS: ANION GAP 7 (5-15); CALCIUM 8.4 mg/dL (8.4-11.0); CHLORIDE 106 mmol/L (98-107); CREATININE 1.38 mg/dL (0.55-1.30); GLUCOSE 111 mg/dL (70-99); UREA NITROGEN, BLOOD 64 mg/dL (8-21)
--- NOTE | 2023-03-17 06:41 | NUR ---
CLOSING NOTES; BS checked 91, moe given. IV still infusing, site patent.long cath intact. encourage oral fluids. needs attended. for further care and assistance. lab called for critical result of Troponin 2271, will call MD. still needs stool for c. diff/WBC, no BM all night. EKG this am.will endorse to incoming shift.
--- NOTE | 2023-03-17 06:53 | NUR ---
NOTES: called Dr. Sainz and informed critical result og Troponin 2271.no further order.
[2023-03-17 07:46] LABS: NEUTROPHILS % (AUTO) 80.6 % (40.0-70.0); PLATELET COUNT (AUTO) 30 K/uL (130-430)
[2023-03-17 08:18] VITALS: BP_SYST 90
--- NOTE | 2023-03-17 08:30 | NUR ---
Dr Gutierres called back in response to critical platelets levels of 30. No new orders,advise to monitor for any bleeding.
[2023-03-17] MEDS ORDERED: cefTRIAXone 1 GM in D5W 50 ML IV SCH (09:00)
[2023-03-17] MEDS: RIFAXIMIN 550 MG TABLET PO SCH ×2 (09:00→21:12)
[2023-03-17] MEDS ORDERED: traMADol HCL HCL 50 MG TABLET (ULTRAM) PO ONE (11:00)
--- NOTE | 2023-03-17 11:10 | NUR ---
CONSULTATION PAGED/CALLED Reason for Consultation: SEPSIS Person Who was Notified: MILLICENT Consulting Physician: STEFFANIE COOPER Ordering Physician:ERIKA HAYWOOD
[2023-03-17 11:30] VITALS: BP_SYST 118
[2023-03-17] MEDS ORDERED: MEROPENEM 500 MG in NS 50 ML IV ONE (11:30)
[2023-03-17] MEDS ORDERED: VANCOMYCIN HCL 1,000 MG in NS 250 ML IV SCH (13:00)
--- NOTE | 2023-03-17 13:28 | NUR ---
CONSULTATION PAGED/CALLED Reason for Consultation: [] thrombocytopenia Person Who was Notified: [] SHELDON Consulting Physician: [] DR Fantasma DONOVAN Lawyer Specialty: [] ONCO/DIAZ Ordering Physician: [] DR HAYWOOD
[2023-03-17 15:07] VITALS: BP_SYST 118
[2023-03-17 15:16] VITALS: BP_SYST 124
--- NOTE | 2023-03-17 16:08 | NUR ---
In to see patient this afternoon at bedside. I introduced myself to the patient, and advised her that I would like to ask her a few questions. The patient is in agreement with speaking to me. The patient appears alert and oriented. She states she resides in a single story home with her daughter. She states she uses a walker and a cane. She requires some assistance with her ADLs. Her Power of House Parent is her daughter, Kathy Catherine ([phone]). She states her biggest support is her daughters and her grandson. Her PCP is Dr. Abad in [place]. The discharge plan is to return home with family. The patient states there was discussion about SNF placement, however she is declining as she has a trip planned for [place], and they leave 03.31.23. Prior to leaving the room, I inquired with the patient about her mental health and alcohol consumption. Per patient, she does not participate in therapy services. She states she no longer drinks alcohol, and that her last drink was approximately 7-8 months ago. She states she would drink a few glasses of wine in the past per night.
[2023-03-17] MEDS ORDERED: OXYTOCIN 10 UNIT/ML VIAL ONE (17:32)
[2023-03-17 20:30] VITALS: BP_SYST 114
[2023-03-17] MEDS: traMADol HCL HCL 50 MG TABLET (ULTRAM) PO SCH (21:14)
[2023-03-17] MEDS: MEROPENEM 500 MG in NS 50 ML IV SCH (21:15)
--- NOTE | 2023-03-17 21:30 | NUR ---
NOTES: pt. assisted to the commode and had small amt. of bowel movement. pt. very weak to stand by herself. stool specimen to be send to lab for test. kept clean and dry. hurts on her left hip. repositioned. call light within reach.
--- NOTE | 2023-03-17 22:00 | NUR ---
NOTES: BS checked 102. due medications given. pt. starts coughing up some phlegm, with blood tinged from dried lips and starts some bleed.
[2023-03-18 00:20] VITALS: BP_SYST 103
[2023-03-18] MEDS ORDERED: NALOXONE HCL 0.4 MG/ML AMP (NARCAN) IVP PRN (01:45)
[2023-03-18] MEDS ORDERED: dilTIAZem HCL IVP 5 MG/ML VIAL IVP PRN (01:45)
--- NOTE | 2023-03-18 01:45 | NUR ---
NOTES: pt. HR up to 140-150, on atrial fib. BP 105/62. pt. anxious and still c/o left hip pain. called Dr. Shannan Kam with orders.
[2023-03-18] MEDS: HYDROcodone/ACETAMIN 5-325 MG TAB (NORCO/ VICODIN) PO PRN (02:07)
[2023-03-18] MEDS: ALPRAZolam 0.25 MG TABLET PO PRN ×2 (02:07→22:20)
--- NOTE | 2023-03-18 02:07 | NUR ---
NOTES: Cardizem 10 mg IVP given , Eden and Xanax po also given. pt. repositioned and turn to side.
--- NOTE | 2023-03-18 02:51 | NUR ---
NOTES: pt. converted to sinus rhythm. pt. sleeping at this time. nopted relief from pain.
--- NOTE | 2023-03-18 04:00 | NUR ---
NOTES:' pt. called and still hurting on her left hip, not time for any pain medication. repositioned and pulled up in bed.
[2023-03-18 06:28] LABS: BASOPHILS # (AUTO) 0.1 K/uL (0.0-0.2); BASOPHILS % (AUTO) 0.4 % (0.0-2.0); EOSINOPHILS # (AUTO) 0.2 K/uL (0.0-0.4); EOSINOPHILS % (AUTO) 1.2 % (0.0-4.0); HEMOGLOBIN 9.5 g/dL (12.0-16.0); LYMPHOCYTES # (AUTO) 1.3 K/uL (1.0-5.5); LYMPHOCYTES % (AUTO) 9.3 % (20.5-51.5); MEAN CORPUSCULAR HEMOGLOBIN 35 pg (27-31); MEAN CORPUSCULAR HGB CONC 34 % (32-36); MEAN CORPUSCULAR VOLUME 103 fL (79.0-98.0); MONOCYTES # (AUTO) 2.4 K/uL (0.0-1.0); MONOCYTES % (AUTO) 16.9 % (1.7-9.3); NEUTROPHILS % (AUTO) 72.2 % (40.0-70.0); RED BLOOD CELL COUNT(AUTO) 2.74 MIL/uL (4.2-6.2); RED CELL DISTRIBUTION WIDTH 20.8 % (9.0-15.0); WHITE BLOOD COUNT (AUTO) 13.9 K/uL (4.8-10.8)
--- NOTE | 2023-03-18 06:30 | NUR ---
CLOSING NOTES; BS checked 78, vaneloy pudding given and due pain med schedule. needs attended. IV site patent .long cath in place. for further care and assistance. will endorse to incoming shift,
[2023-03-18] MEDS: traMADol HCL HCL 50 MG TABLET (ULTRAM) PO SCH ×3 (06:33→22:20)
[2023-03-18 06:44] LABS: PROTHROMBIN TIME 19.9 SECS (9.5-12.5)
[2023-03-18 06:45] LABS: PLATELET COUNT (AUTO) 30 K/uL (130-430)
--- NOTE | 2023-03-18 06:55 | NUR ---
NOTES: lab called for critical result of platelets 30, will call Dr. Gutierres.
[2023-03-18 07:01] LABS: ANION GAP 7 (5-15); CALCIUM 8.4 mg/dL (8.4-11.0); CHLORIDE 107 mmol/L (98-107); CREATININE 0.86 mg/dL (0.55-1.30); FREE T4 (FREE THYROXINE) 1.2 ng/dL (0.6-1.6); GLUCOSE 90 mg/dL (70-99); THYROID STIMULATING HORMONE 1.09 uIu/mL (0.34-4.82); UREA NITROGEN, BLOOD 54 mg/dL (8-21)
--- NOTE | 2023-03-18 07:09 | NUR ---
meliza called called [facility] at spoke with dr vargas paliwal, amit answering service telephone operator.
[2023-03-18 07:30] VITALS: BP_SYST 103
--- NOTE | 2023-03-18 07:30 | NUR ---
Opening notes Patient is laying in bed while watching tv, nepali speaking. Patient Breathing even and unlabored on RA. No pain, no distress, no SOB. RAC 22g and L wrist 20g. Patient is bed bound. Bed is locked in lowest position. Call light within reach, all needs met, will continue with plan of care.
[2023-03-18] MEDS: RIFAXIMIN 550 MG TABLET PO SCH ×2 (08:42→22:20)
[2023-03-18] MEDS: MEROPENEM 500 MG in NS 50 ML IV SCH (09:33)
--- NOTE | 2023-03-18 10:50 | NUR ---
CONSULTATION PAGED/CALLED Reason for Consultation: [] Transaminitis Person Who was Notified: [] Yesi Consulting Physician: [] Dr Guillaume Film Casting Operator Specialty: [] GI Ordering Physician: [] Dr Kam
[2023-03-18 11:23] VITALS: BP_SYST 122
--- NOTE | 2023-03-18 12:00 | NUR ---
CM: received call from marcell/Bertha , she expressed concerns that the pt lives with her niece/Kathy, JERAMIE who is absence most of the time. She requested pt going to contracted snf which I provided : [facility], [facility], [facility]. She will talk to Kathy and will call back with her preference. She aware that Kathy is POA, Cm will confirm with her and patient before sending referral to snf.
--- NOTE | 2023-03-18 12:00 | NUR ---
Noon notees Patient is laying in bed while watching tv with sister at bedside, Patient Breathing even and unlabored on RA. No pain, no distress, no SOB. Patient is bed bound. Bed is locked in lowest position. Call light within reach, all needs met, will continue with plan of care.
[2023-03-18 14:58] LABS: HEMATOCRIT 28.4 % (36-48); HEMOGLOBIN 9.6 g/dL (12.0-16.0); MEAN CORPUSCULAR HEMOGLOBIN 34 pg (27-31); MEAN CORPUSCULAR HGB CONC 34 % (32-36); MEAN CORPUSCULAR VOLUME 102 fL (79.0-98.0); RED BLOOD CELL COUNT(AUTO) 2.79 MIL/uL (4.2-6.2); RED CELL DISTRIBUTION WIDTH 21.1 % (9.0-15.0); WHITE BLOOD COUNT (AUTO) 14.3 K/uL (4.8-10.8)
[2023-03-18 15:09] LABS: PLATELET COUNT (AUTO) 27 K/uL (130-430)
[2023-03-18 15:17] VITALS: BP_SYST 111
[2023-03-18 15:25] LABS: BAND % (MANUAL) 9 % (0-6); LYMPHOCYTES % (MANUAL) 12 % (20-46)
[2023-03-18 15:26] LABS: BASOPHILS % (MANUAL) 0 % (0-2); EOSINOPHILS % (MANUAL) 1 % (0-7); METAMYELOCYTES % 2 % (0-0); MONOCYTES % (MANUAL) 8 % (0-11)
--- NOTE | 2023-03-18 16:00 | NUR ---
NOTES Spoke with patient and let her know that she will be getting a CT on her abdomen tomorrow morning and after midnight she will be NPO. Patient stated she understands
[2023-03-18] MEDS: DAPTOmycin 450 MG in NS 50 ML IV SCH (16:39)
--- NOTE | 2023-03-18 19:08 | NUR ---
Closing notes Patient is resting with BF at bedside, Patient Breathing even and unlabored on RA. RAC 22g and 20g L wrist, CCHO diet. No pain, no distress, no SOB. Patient is bed bound. Bed is locked in lowest position. Call light within reach, all needs met, will endorse to retail shift supervisor nurse..
[2023-03-18 21:00] VITALS: BP_SYST 135
--- NOTE | 2023-03-18 22:15 | NUR ---
XANAX 0.25 MG po given for anxiety comfort measures also implemented & also helpful off loading with pillows used & tolerated / .
[2023-03-18] MEDS: LACTULOSE 20 GM/30 ML UDC PO SCH (22:19)
[2023-03-18] MEDS: CEFEPIME 2 GM in D5W 100 ML IV SCH (22:19)
[2023-03-19 01:23] VITALS: BP_SYST 114
--- NOTE | 2023-03-19 02:30 | NUR ---
ULTRUM 50 MG po given for acute pain & helpful / .
--- NOTE | 2023-03-19 02:39 | NUR ---
NPO patient alert & aware for AM procedure .
--- NOTE | 2023-03-19 05:15 | NUR ---
Patient awake placed on bed magana BM encouraged , but no stool , comfort measures implemented .
[2023-03-19] MEDS: traMADol HCL HCL 50 MG TABLET (ULTRAM) PO SCH ×3 (05:58→21:48)
[2023-03-19 07:43] LABS: INR 1.9 (0.8-1.2); PROTHROMBIN TIME 18.8 SECS (9.5-12.5)
[2023-03-19 07:45] VITALS: BP_SYST 124
--- NOTE | 2023-03-19 07:45 | NUR ---
Opening Notes Patient is laying in bed while watching tv, azeri speaking. Patient Breathing even and unlabored on RA. No pain, no distress, no SOB. RAC 22g and L wrist 20g. Patient is bed bound. Bed is locked in lowest position. Call light within reach, all needs met, will continue with plan of care.
[2023-03-19 07:49] LABS: ALANINE AMINOTRANSFERASE 108 U/L (12-78); ALBUMIN 1.6 g/dL (3.4-4.8); ANION GAP 8 (5-15); ASPARTATE AMINOTRANSFERASE 130 U/L (10-37); C-REACTIVE PROTEIN QUANT 11.7 mg/dL (0-0.5); CALCIUM 8.7 mg/dL (8.4-11.0); CHLORIDE 105 mmol/L (98-107); CREATININE 0.66 mg/dL (0.55-1.30); GLUCOSE 95 mg/dL (70-99); TOTAL BILIRUBIN 10.1 mg/dL (0.0-1.0); UREA NITROGEN, BLOOD 47 mg/dL (8-21)
[2023-03-19 08:03] LABS: BASOPHILS # (AUTO) 0.1 K/uL (0.0-0.2); BASOPHILS % (AUTO) 0.8 % (0.0-2.0); EOSINOPHILS # (AUTO) 0.1 K/uL (0.0-0.4); EOSINOPHILS % (AUTO) 0.8 % (0.0-4.0); HEMATOCRIT 27.1 % (36-48); HEMOGLOBIN 9.3 g/dL (12.0-16.0); LYMPHOCYTES # (AUTO) 1.5 K/uL (1.0-5.5); MEAN CORPUSCULAR HEMOGLOBIN 35 pg (27-31); MEAN CORPUSCULAR HGB CONC 34 % (32-36); MEAN CORPUSCULAR VOLUME 102 fL (79.0-98.0); MONOCYTES # (AUTO) 1.8 K/uL (0.0-1.0); NEUTROPHILS # (AUTO) 11.1 K/uL (1.8-7.7); RED BLOOD CELL COUNT(AUTO) 2.67 MIL/uL (4.2-6.2); RED CELL DISTRIBUTION WIDTH 20.4 % (9.0-15.0); WHITE BLOOD COUNT (AUTO) 14.6 K/uL (4.8-10.8)
[2023-03-19 08:35] LABS: PLATELET COUNT (AUTO) 41 K/uL (130-430)
[2023-03-19 08:36] LABS: NEUTROPHILS % (AUTO) 76.4 % (40.0-70.0)
[2023-03-19 08:43] LABS: TOTAL IRON BIND. CAPACITY 173 ug/dL (250-450)
[2023-03-19 08:50] LABS: ERYTHROCYTE SEDIMENTATION RATE 83 MM/HR (0-20)
[2023-03-19] MEDS: HYDROcodone/ACETAMIN 5-325 MG TAB (NORCO/ VICODIN) PO PRN ×2 (09:48→18:48)
[2023-03-19] MEDS: CEFEPIME 2 GM in D5W 100 ML IV SCH ×2 (09:50→21:47)
[2023-03-19] MEDS ORDERED: iohexoL 350 mgI/mL, 100 ML INFUS..BTL IV ONE (10:33)
[2023-03-19] MEDS: RIFAXIMIN 550 MG TABLET PO SCH ×2 (11:27→21:48)
[2023-03-19] MEDS: LACTULOSE 20 GM/30 ML UDC PO SCH ×2 (11:27→21:47)
[2023-03-19 12:00] VITALS: BP_SYST 120
[2023-03-19] MEDS: DAPTOmycin 450 MG in NS 50 ML IV SCH (14:25)
[2023-03-19 16:00] VITALS: BP_SYST 119
--- NOTE | 2023-03-19 18:32 | NUR ---
Closing notes Patient is laying in bed while watching tv, occitan speaking. Patient Breathing even and unlabored on RA. No pain, no distress, no SOB. RAC 22g and L wrist 20g. Patient is bed bound. Bed is locked in lowest position. Call light within reach, all needs met, will endorse to perforator loader nurse.
[2023-03-19 21:00] VITALS: BP_SYST 135
--- NOTE | 2023-03-19 21:44 | NUR ---
XANAX 0.25 MG PO administer for acute anxiety procedures explained call adams given to patient / .
[2023-03-19] MEDS: ALPRAZolam 0.25 MG TABLET PO PRN (21:48)
--- NOTE | 2023-03-19 23:00 | NUR ---
ULTRUM 50 MG po given for pain control & helpful off loading with pillows used & tolerated / .
[2023-03-20] VITALS: BP_SYST 119
--- NOTE | 2023-03-20 03:20 | NUR ---
Hourly Rounding patient Resting HOB elevated is verbally Responsive call adams given to patient BED ALARM IS ON / .
[2023-03-20] MEDS: traMADol HCL HCL 50 MG TABLET (ULTRAM) PO SCH ×3 (05:58→21:33)
--- NOTE | 2023-03-20 07:38 | NUR ---
Initial Note: Report received from Dylan. Patient is sleeping. Awaken by voice. Bed in the lowest position and side rails x3 up. Bed alarm is on and call light in reach. Assessment is done. No pain or discomfort at this time. Will continue patient care.
[2023-03-20 08:00] VITALS: BP_SYST 121
[2023-03-20 08:02] LABS: ALANINE AMINOTRANSFERASE 91 U/L (12-78); ALBUMIN 1.5 g/dL (3.4-4.8); ANION GAP 7 (5-15); ASPARTATE AMINOTRANSFERASE 153 U/L (10-37); CALCIUM 8.5 mg/dL (8.4-11.0); CHLORIDE 103 mmol/L (98-107); CREATININE 0.69 mg/dL (0.55-1.30); GLUCOSE 89 mg/dL (70-99); TOTAL BILIRUBIN 11.2 mg/dL (0.0-1.0); UREA NITROGEN, BLOOD 39 mg/dL (8-21)
[2023-03-20 08:06] LABS: FERRITIN 166 ng/mL (15-150); FOLATE (FOLIC ACID) 13.5 ng/mL (>3.0)
[2023-03-20] MEDS: LACTULOSE 20 GM/30 ML UDC PO SCH ×2 (08:43→21:34)
[2023-03-20] MEDS: CEFEPIME 2 GM in D5W 100 ML IV SCH (08:43)
[2023-03-20] MEDS: RIFAXIMIN 550 MG TABLET PO SCH ×2 (08:43→21:34)
[2023-03-20] MEDS: HYDROcodone/ACETAMIN 5-325 MG TAB (NORCO/ VICODIN) PO PRN ×2 (08:44→20:05)
[2023-03-20 11:30] VITALS: BP_SYST 158
--- NOTE | 2023-03-20 12:01 | NUR ---
Note: patient is resting in bed. Family is at the bedside. Lunch provided.
[2023-03-20] MEDS: AMPICILLIN SODIUM 2 GM in NS 100 ML IV SCH ×2 (12:46→18:13)
--- NOTE | 2023-03-20 13:09 | NUR ---
Note: Dr. Gutierres is here to see patient. New orders received.
[2023-03-20] MEDS ORDERED: LIDOCAINE VISCOUS 2%, 15 ML UDC MM ONE (13:15)
[2023-03-20] MEDS ORDERED: LIDOCAINE PATCH 5% 1 EA TP ONE (13:15)
[2023-03-20] MEDS ORDERED: NACL 0.9% 1,000 ML IV ONE (13:30)
--- NOTE | 2023-03-20 13:36 | NUR ---
Note: midline is inserted at the bedside. Patient tolerated well.
--- NOTE | 2023-03-20 15:38 | NUR ---
PHYSICAL THERAPY CO-SIGN The Physical Therapy Progress Notes documented by Visual Merchandising Associate have been reviewed. Reviewed/Co-Signed by: Doug Álvarez Documentation Done by:ANTHONY BURNETT Addendum: 03/20/23 at 1538 by Doug Álvarez PT Amended: Links added.
--- NOTE | 2023-03-20 15:59 | NUR ---
CHINA reached out to Dr Gutierres for discharge planning for SNF order. Dr Gutierres states that the patient is not ready. [facility] faxed updated clinicals to Maday ATKINSON at [facility]
[2023-03-20 18:32] VITALS: BP_SYST 116
--- NOTE | 2023-03-20 19:30 | NUR ---
OPENING NOTES Patient resting in bed - no s/s pain or distress noted. Respirations even and unlabored - head of bed elevated. IV site patent no s/s redness infection or infiltration. Bed locked and in lowest position. Call light within reach. Bed alarm on.
--- NOTE | 2023-03-20 19:32 | NUR ---
closing note: report is given to Jamison. Dr. Gutierres called back and stated to hold the discharge until patient is cleared by ID and GI doctors. Endorsed to Jamison to continue patient care.
[2023-03-20 20:00] VITALS: BP_SYST 127
[2023-03-20] MEDS: LIDOCAINE VISCOUS 2%, 15 ML UDC MM SCH (21:34)
[2023-03-21] VITALS: BP_SYST 123
[2023-03-21] MEDS: AMPICILLIN SODIUM 2 GM in NS 100 ML IV SCH ×5 (00:22→23:10)
[2023-03-21 03:07] LABS: HEPATITIS A AB, IgM Negative (Negative); HEPATITIS B CORE AB, IgM Negative (Negative); HEPATITIS B SURFACE AG Negative (Negative)
[2023-03-21] MEDS: traMADol HCL HCL 50 MG TABLET (ULTRAM) PO SCH ×3 (06:19→21:04)
[2023-03-21 07:48] VITALS: BP_SYST 118
[2023-03-21] MEDS: RIFAXIMIN 550 MG TABLET PO SCH ×2 (08:24→21:04)
[2023-03-21] MEDS: LIDOCAINE PATCH 5% 1 EA TP SCH (08:24)
[2023-03-21] MEDS: LACTULOSE 20 GM/30 ML UDC PO SCH ×2 (08:24→21:05)
[2023-03-21] MEDS: HYDROcodone/ACETAMIN 5-325 MG TAB (NORCO/ VICODIN) PO PRN (10:19)
[2023-03-21] MEDS: LIDOCAINE VISCOUS 2%, 15 ML UDC MM SCH ×2 (10:20→21:05)
[2023-03-21 11:26] VITALS: BP_SYST 132
[2023-03-21 15:35] VITALS: BP_SYST 122
--- NOTE | 2023-03-21 15:50 | NUR ---
PHYSICAL THERAPY CO-SIGN The Physical Therapy Progress Notes documented by Inside Sales Account Representative have been reviewed. Reviewed/Co-Signed by: Doug Álvarez Documentation Done by:ANTHONY BURNETT Addendum: 03/21/23 at 1550 by Doug Álvarez PT Amended: Links added.
--- NOTE | 2023-03-21 17:30 | NUR ---
[place] faxed DCP for SNF to Maday at [facility] f# [phone]. patient to be discharge to [facility] room 112A. RN to obtain final discharge order. Maday ATKINSON at [place] to arrange transportation.
--- NOTE | 2023-03-21 18:15 | NUR ---
End of shift. Pt has been encouraged to turn side to side at her own pace in bed all shift. Pt's CLINTON - midline intact and patent throughout the shift. Pt was checked on all shift q1' and PRN for needs and care. Pt was maintained with safety precautions all shift. Pt did get get OOB and stand on side of bed with PT. Aguila catheter intact and patent draining well all shift. Pt's bed in low position all shift and bed alarm on. Call light within reach.
[2023-03-21] MEDS ORDERED: iohexoL 350 mgI/mL, 100 ML INFUS..BTL IV ONE (19:02)
[2023-03-21 20:00] VITALS: BP_SYST 131
--- NOTE | 2023-03-21 20:00 | NUR ---
Discharge planning [place] phone no.. [phone] Insurance called patient was accepted in [facility] room 112 A FOR REPORT PHONE NO. [phone], for transport [facility] on will call phone no. [phone], per case mgr ok to discharge the following day after the result of Ct SCAN if cleared by the admitting doctor.,Kathy daughter with POA informed and agreed.
--- NOTE | 2023-03-22 | NUR ---
Skin care Had a bowel movement semi formed , perineal care given , whole sheet changed , repositioned.
[2023-03-22] MEDS: HYDROcodone/ACETAMIN 5-325 MG TAB (NORCO/ VICODIN) PO PRN (00:05)
[2023-03-22 00:55] VITALS: BP_SYST 137
[2023-03-22 05:31] LABS: BASOPHILS % (AUTO) 0.3 % (0.0-2.0); EOSINOPHILS # (AUTO) 0.1 K/uL (0.0-0.4); EOSINOPHILS % (AUTO) 0.7 % (0.0-4.0); HEMOGLOBIN 9.7 g/dL (12.0-16.0); LYMPHOCYTES # (AUTO) 1.4 K/uL (1.0-5.5); LYMPHOCYTES % (AUTO) 8.9 % (20.5-51.5); MEAN CORPUSCULAR HEMOGLOBIN 35 pg (27-31); MEAN CORPUSCULAR HGB CONC 35 % (32-36); MEAN CORPUSCULAR VOLUME 102 fL (79.0-98.0); MONOCYTES # (AUTO) 1.7 K/uL (0.0-1.0); MONOCYTES % (AUTO) 11.1 % (1.7-9.3); NEUTROPHILS # (AUTO) 12.2 K/uL (1.8-7.7); PLATELET COUNT (AUTO) 66 K/uL (130-430); RED BLOOD CELL COUNT(AUTO) 2.74 MIL/uL (4.2-6.2); RED CELL DISTRIBUTION WIDTH 20.5 % (9.0-15.0); WHITE BLOOD COUNT (AUTO) 15.5 K/uL (4.8-10.8)
[2023-03-22] MEDS: AMPICILLIN SODIUM 2 GM in NS 100 ML IV SCH ×4 (05:31→23:27)
[2023-03-22] MEDS: traMADol HCL HCL 50 MG TABLET (ULTRAM) PO SCH ×3 (05:35→21:39)
[2023-03-22 06:00] LABS: ALANINE AMINOTRANSFERASE 72 U/L (12-78); ALBUMIN 1.5 g/dL (3.4-4.8); ANION GAP 8 (5-15); ASPARTATE AMINOTRANSFERASE 133 U/L (10-37); BILIRUBIN,DIRECT 8.1 mg/dL (0.0-0.3); CALCIUM 8.5 mg/dL (8.4-11.0); CHLORIDE 103 mmol/L (98-107); CREATININE 0.61 mg/dL (0.55-1.30); GLUCOSE 97 mg/dL (70-99); TOTAL BILIRUBIN 10.8 mg/dL (0.0-1.0); UREA NITROGEN, BLOOD 30 mg/dL (8-21)
[2023-03-22 08:42] VITALS: BP_SYST 133
[2023-03-22] MEDS: LACTULOSE 20 GM/30 ML UDC PO SCH ×2 (09:36→21:38)
[2023-03-22] MEDS: RIFAXIMIN 550 MG TABLET PO SCH ×2 (09:36→21:39)
[2023-03-22] MEDS: LIDOCAINE PATCH 5% 1 EA TP SCH (09:36)
[2023-03-22 11:25] VITALS: BP_SYST 134
[2023-03-22] MEDS: LIDOCAINE VISCOUS 2%, 15 ML UDC MM SCH ×2 (11:34→21:39)
--- NOTE | 2023-03-22 14:31 | NUR ---
PHYSICAL THERAPY CO-SIGN The Physical Therapy Progress Notes documented by Health Director have been reviewed. Reviewed/Co-Signed by: Doug Álvarez Documentation Done by:ANTHONY BURNETT Addendum: 03/22/23 at 1431 by Doug Álvarez PT Amended: Links added.
[2023-03-22 15:37] VITALS: BP_SYST 168
--- NOTE | 2023-03-22 16:22 | NUR ---
GI MD DR MOTLEY WAS CALLED, RE: CLEARANCE FOR DISCHARGE. SPOKE TO KALLIE.
--- NOTE | 2023-03-22 16:56 | NUR ---
MADE ANOTHER F/U CALL ON HIS CELL TO IVANNA MOTLEY, RE: CLEARANCE FOR DISCHARGE. Addendum: 03/22/23 at 1658 by Lianna Mariano NV/ LEFT A VOICE MESSAGE ON HIS CELL.
[2023-03-22 17:05] LABS: BASOPHILS # (AUTO) 0.1 K/uL (0.0-0.2); BASOPHILS % (AUTO) 0.6 % (0.0-2.0); EOSINOPHILS # (AUTO) 0.1 K/uL (0.0-0.4); EOSINOPHILS % (AUTO) 0.7 % (0.0-4.0); HEMATOCRIT 28.1 % (36-48); HEMOGLOBIN 9.7 g/dL (12.0-16.0); LYMPHOCYTES # (AUTO) 1.1 K/uL (1.0-5.5); LYMPHOCYTES % (AUTO) 8.3 % (20.5-51.5); MEAN CORPUSCULAR HEMOGLOBIN 35 pg (27-31); MEAN CORPUSCULAR HGB CONC 35 % (32-36); MEAN CORPUSCULAR VOLUME 102 fL (79.0-98.0); MONOCYTES # (AUTO) 1.5 K/uL (0.0-1.0); MONOCYTES % (AUTO) 10.6 % (1.7-9.3); NEUTROPHILS # (AUTO) 11.1 K/uL (1.8-7.7); NEUTROPHILS % (AUTO) 79.8 % (40.0-70.0); PLATELET COUNT (AUTO) 73 K/uL (130-430); RED BLOOD CELL COUNT(AUTO) 2.75 MIL/uL (4.2-6.2); RED CELL DISTRIBUTION WIDTH 20.2 % (9.0-15.0); WHITE BLOOD COUNT (AUTO) 13.8 K/uL (4.8-10.8)
--- NOTE | 2023-03-22 17:26 | NUR ---
ATTENDING MD DR HAYWOOD WAS CALLED RE: APPROVAL FOR DISCHARGE, AFTER GETTING CLEARANCES FROM GI, DR KEVIN AND ID , DR COOPER. SPOKE TO LEIGHTON.
[2023-03-22 18:41] VITALS: BP_SYST 124
--- NOTE | 2023-03-22 18:50 | NUR ---
CALLED ROSA HOLT @ [phone] TO GIVE REPORT. SPOKE TO BRITNEY AND SAID THAT SOMEONE CALLED AND NOTIFIED THE CONTRACTS OFFICER THAT THE PATIENT'S NO LONGER COMING BECAUSE THERE'S A CHANGE ON PATIENT'S CONDITION. ASKED BRITNEY IF WE COULD SPEAK TO THE DON. SPOKE TO ALISA, THE DON AND SAID THAT THERE'S NO NURSE TO ADMIT THE PATIENT AT THIS TIME AND ASKED IF WE COULD TRANSFER THE PATIENT EARLY IN THE MORNING. DR. HAYWOOD MADE AWARE. FAMILY MADE AWARE.
[2023-03-22] MEDS ORDERED: AMPI1VIA INJ (18:59)
--- NOTE | 2023-03-22 19:24 | NUR ---
PAGED PAGED DOCTOR CHASTITY
[2023-03-22 20:00] VITALS: BP_SYST 145
--- NOTE | 2023-03-22 20:00 | NUR ---
ASSESSMENT COMPLETED PLAN OF CARE REVIEWED PT MADE AWARE TO CALL FOR ASSISTANCE CALL LIGHT IN REACH NO DISTRESS NOTED WILL CONITINUE TO MONITOR AND ASSESS
[2023-03-22] MEDS: ALPRAZolam 0.25 MG TABLET PO PRN (21:39)
[2023-03-23 01:12] VITALS: BP_SYST 130
[2023-03-23 04:34] VITALS: BP_SYST 136
--- NOTE | 2023-03-23 04:46 | NUR ---
CALLED SUZANNE HOLT FOR PT TO BE DISCHARGED THIS AM SPOKE WITH HORACE WHOM PUT ME ON HOLD TO CONTACT THE DON AND PER HORACE THE PT CAN BE TRANSFERRED AFTER 0800 PER DARI CN MADE AWARE ALL NEEDS ANTICIPATED [facility] TRANSPERTATION WILL PICK PT UP 10-1030 WILL MAKE ONCOMING NURSE AWARE
--- NOTE | 2023-03-23 04:58 | NUR ---
[facility] CALLED AND SPOKE WITH MALENA PATTERSON IS FOR [phone] Addendum: 03/23/23 at 0535 by Karissa Stack CNA [phone]
[2023-03-23 05:12] LABS: BASOPHILS % (AUTO) 0.3 % (0.0-2.0); EOSINOPHILS # (AUTO) 0.1 K/uL (0.0-0.4); EOSINOPHILS % (AUTO) 0.5 % (0.0-4.0); HEMATOCRIT 26.7 % (36-48); HEMOGLOBIN 9.2 g/dL (12.0-16.0); LYMPHOCYTES # (AUTO) 1.2 K/uL (1.0-5.5); LYMPHOCYTES % (AUTO) 8.9 % (20.5-51.5); MEAN CORPUSCULAR HEMOGLOBIN 35 pg (27-31); MEAN CORPUSCULAR HGB CONC 34 % (32-36); MEAN CORPUSCULAR VOLUME 102 fL (79.0-98.0); MONOCYTES # (AUTO) 1.3 K/uL (0.0-1.0); MONOCYTES % (AUTO) 9.7 % (1.7-9.3); NEUTROPHILS # (AUTO) 11.1 K/uL (1.8-7.7); NEUTROPHILS % (AUTO) 80.6 % (40.0-70.0); PLATELET COUNT (AUTO) 78 K/uL (130-430); RED BLOOD CELL COUNT(AUTO) 2.62 MIL/uL (4.2-6.2); RED CELL DISTRIBUTION WIDTH 19.8 % (9.0-15.0); WHITE BLOOD COUNT (AUTO) 13.7 K/uL (4.8-10.8)
[2023-03-23 05:28] LABS: ANION GAP 7 (5-15); CALCIUM 8.2 mg/dL (8.4-11.0); CHLORIDE 102 mmol/L (98-107); CREATININE 0.64 mg/dL (0.55-1.30); GLUCOSE 86 mg/dL (70-99); UREA NITROGEN, BLOOD 25 mg/dL (8-21)
[2023-03-23] MEDS: traMADol HCL HCL 50 MG TABLET (ULTRAM) PO SCH (05:47)
[2023-03-23] MEDS: AMPICILLIN SODIUM 2 GM in NS 100 ML IV SCH (05:47)
[2023-03-23 08:27] VITALS: BP_SYST 119
[2023-03-23] MEDS: LACTULOSE 20 GM/30 ML UDC PO SCH (08:49)
[2023-03-23] MEDS: RIFAXIMIN 550 MG TABLET PO SCH (08:49)
[2023-03-23] MEDS: LIDOCAINE VISCOUS 2%, 15 ML UDC MM SCH (08:50)
[2023-03-23] MEDS: LIDOCAINE PATCH 5% 1 EA TP SCH (08:50)
--- NOTE | 2023-03-23 10:26 | NUR ---
The primary nurse(mortgage loan underwriter), called [place] [facility] #[phone] and gave report to nurse Tani MILLER. No concerns voiced.
--- NOTE | 2023-03-23 11:24 | NUR ---
This nurse received a call from nurse Tani MILLER at [facility] asking about patient's Urine C&S. Caller was very rude and called me a " JackASS", and hung up.
--- NOTE | 2023-03-23 12:15 | NUR ---
PHYSICAL THERAPY CO-SIGN The Physical Therapy Progress Notes documented by Garment Manufacturing Supervisor have been reviewed. Reviewed/Co-Signed by: Doug Álvarez Documentation Done by:ANTHONY BURNETT Addendum: 03/23/23 at 1216 by Doug Álvarez PT Amended: Links added.
[2023-03-30 11:44] LABS: HEPATITIS C VIRUS AB Negative <0.8 s/co (0.0-0.7)
== END 2023-03-23 10:30 | DRG 871 ==
LOC: SED 14:12 → STU 16:15 → SMU 03-22 09:35
PROVIDERS: ADMIT Specialist; ATTEND Specialist
DX: A41.9 Sepsis, unspecified organism (principal); E43 Unspecified severe protein-calorie malnutrition; I21.A1 Myocardial infarction type 2; N39.0 Urinary tract infection, site not specified; D61.818 Other pancytopenia; D68.4 Acquired coagulation factor deficiency; E87.0 Hyperosmolality and hypernatremia; E87.20 Acidosis, unspecified; K74.60 Unspecified cirrhosis of liver; K76.82 Hepatic encephalopathy; B95.5 Unspecified streptococcus as the cause of diseases classified elsewhere; Z68.31 Body mass index [BMI] 31.0-31.9, adult; D69.59 Other secondary thrombocytopenia; D73.1 Hypersplenism; E83.41 Hypermagnesemia; E88.09 Other disorders of plasma-protein metabolism, not elsewhere classified; R07.89 Other chest pain; I50.9 Heart failure, unspecified; D63.8 Anemia in other chronic diseases classified elsewhere; E03.9 Hypothyroidism, unspecified
CPT/HCPCS: 36415; 70450-TC; 71045; 73502; 74170-TC; 76376; 76700-TC; 80048; 80053; 80074; 80076; 81000; 82009; 82105; 82140; 82272; 82550; 82607; 82728; 82746; 83540; 83550; 83605; 83735; 84439; 84443; 84479; 84484; 85007; 85025; 85027; 85610-TC; 85651-TC; 85730-TC; 86140; 86803; 87040; 87086; 87186-TC; 89055; 93005; 97110-GP; 97116-GP; 97530-GP; 99285; C1751; G0378; J0290; J0692; J0696; J0878; J2001; J2185; J2543; J2590; J3370; J3490; J7030; J7040; J7050; J7060; P9041; Q9967

== ENCOUNTER 2023-05-16 20:23 | Inpatient (IN) | payer OTHER ==
[~2023-05-16] VITALS: Ht 162.6 cm; Wt 88.2 kg
[~2023-05-16 20:23] MED LIST changes: +AMPI1VIA INJ; +FERR325T30; +LACT10SO6 PO; +MECL-160 PO; -RIFA200T10 PO; -RIFA550T5 PO; +SPIR50TA5 PO; +TRAZ50TA54
[2023-05-16 20:34] VITALS: BP_SYST 116; PULSE 108; RESP 22; TEMP 98.4; O2SAT 95
--- NOTE | 2023-05-16 20:34 | NUR ---
Triaged and placed patient in ER bed 7 for evaluation. Report given to JAMIN MILLER for continuity of care. VSS, no acute respiratory distress noted at this time. Instructed to notify ED staff for any changes in condition or worsening of symptoms. Patient verbalized understanding.
--- NOTE | 2023-05-16 20:36 | NUR ---
DR. RIVAS AT BEDSIDE EXAMINING THE PATIENT.
--- NOTE | 2023-05-16 20:43 | NUR ---
pt bib daughter from home. c/o RUQ pain. Pt states to have ate earlier this morning when she noticed pain after the meal. Pt states pain seemed to get worse thru the day which prompted her to come in. Pt rates pain 05/22. Pt noted with extended abdomen. Pt denies N/V/D. Pt denies SOB. Pt denies chest pain. Pt states normal BM yesterday. Pt has hx of liver disease. Pt VSS. AAOX4. Pt skin dry and intact. Jaundice noted on pt skin. Pt speaking full complete sentences.
--- NOTE | 2023-05-16 21:06 | NUR ---
PATIENT IS BACK FROM CT.
[2023-05-16 21:25] LABS: HEMATOCRIT 25.3 % (36-48); HEMOGLOBIN 8.6 g/dL (12.0-16.0); MEAN CORPUSCULAR HEMOGLOBIN 38 pg (27-31); MEAN CORPUSCULAR HGB CONC 34 % (32-36); MEAN CORPUSCULAR VOLUME 112 fL (79.0-98.0); PLATELET COUNT (AUTO) 68 K/uL (130-430); RED BLOOD CELL COUNT(AUTO) 2.26 MIL/uL (4.2-6.2); RED CELL DISTRIBUTION WIDTH 20.1 % (9.0-15.0); WHITE BLOOD COUNT (AUTO) 2.5 K/uL (4.8-10.8)
--- NOTE | 2023-05-16 21:26 | NUR ---
# 22 gauge angiocath placed to RAC. Use of asceptic technique. Opsite placed over site. Blood return noted. Blood for lab drawn from site. Flushed with 10 cc of normal saline. No evidence of infiltration noted. Patient tolerated well.
[2023-05-16 21:43] LABS: ANION GAP 9 (5-15); CALCIUM 8.6 mg/dL (8.4-11.0); CHLORIDE 104 mmol/L (98-107); GLUCOSE 130 mg/dL (74-106); UREA NITROGEN, BLOOD 28 mg/dL (8-21)
[2023-05-16 21:46] LABS: ALANINE AMINOTRANSFERASE 40 U/L (12-78); ALBUMIN 1.3 g/dL (3.4-4.8); ASPARTATE AMINOTRANSFERASE 94 U/L (10-37); LIPASE 251 U/L (73-393); TOTAL BILIRUBIN 6.8 mg/dL (0.0-1.0)
[2023-05-16] MEDS ORDERED: KETOROLAC TROMETHAMINE 30 MG VIAL IVP ONE (22:00)
--- NOTE | 2023-05-16 22:16 | NUR ---
DR. WILSON AT BEDSIDE EXAMINING THE PATIENT.
[2023-05-16] MEDS ORDERED: MAG-AL HYDROX/SIMETH 30 ML UDC PO ONE (22:30)
[2023-05-16] MEDS ORDERED: LIDOCAINE VISCOUS 2%, 15 ML UDC MM ONE (22:30)
--- NOTE | 2023-05-16 23:21 | NUR ---
Paracentisis ordered per MD Thakur. Consent formed signed by pt.
[2023-05-16 23:40] LABS: BAND % (MANUAL) 22 % (0-6); BASOPHILS % (MANUAL) 0 % (0-2); EOSINOPHILS % (MANUAL) 5 % (0-7); LYMPHOCYTES % (MANUAL) 36 % (20-46); MONOCYTES % (MANUAL) 6 % (0-11)
--- NOTE | 2023-05-17 00:01 | NUR ---
paracentesis performed by MD Thakur. Pt tolerated procedure well
[2023-05-17 00:41] LABS: BILIRUBIN,URINE 2+ (NEGATIVE); BLOOD, URINE NEGATIVE (NEGATIVE); GLUCOSE,URINE NEGATIVE (NEGATIVE); KETONES,URINE TRACE (NEGATIVE); LEUKOCYTE ESTERASE ,URINE TRACE (NEGATIVE); NITRITE, URINE POSITIVE (NEGATIVE); PROTEIN URINE NEGATIVE (NEGATIVE); UROBILINOGEN,URINE 0.2 (0.2-1.0)
[2023-05-17 00:49] LABS: CLARITY/URINE CLOUDY (CLEAR); COLOR,URINE AMBER (YELLOW)
[2023-05-17 00:53] LABS: BACTERIA,URINE MODERATE /HPF (None Seen); RBC,URINE 0-3 /HPF (0-3)
[2023-05-17] MEDS ORDERED: NACL 0.9% 1,000 ML IV ONE ×3 (01:30→22:45)
[2023-05-17] MEDS ORDERED: cefTRIAXone 1 GM in D5W 50 ML IV ONE (01:30)
[2023-05-17] MEDS ORDERED: cefTRIAXone 1 GM VIAL ONE (01:48)
--- NOTE | 2023-05-17 02:44 | NUR ---
pt in bed resting with eyes closed.
--- NOTE | 2023-05-17 03:13 | NUR ---
Admit bed requested Patient will be admitted to care of Dr SALGADO. Admitted to MED SURG unit. Diagnosis UTI Inpatient (Yes or No) Y Observation (Yes or No) N Orientation concerns or request close to nursing station (Yes or No) N Covid Status N/A On vent or bipap N Isolation requirements N Needs a sitter N From Home (Yes or if No enter name of facility) HOME Requires Dialysis (Yes or No) N Med Rec Completed (Yes of No) PENDING
--- NOTE | 2023-05-17 04:05 | NUR ---
pt in bed resting with eyes closed. BP is 107/53. 2 L of NS wide open running. Pt tolerating well. Side rails up. Bed in lowest position.
[2023-05-17 04:35] VITALS: BP_SYST 100; PULSE 104; RESP 12; TEMP 97.2
--- NOTE | 2023-05-17 04:45 | NUR ---
Patient will be admitted to care of NURSE. Admitted to MED SURG unit. Will go to room . Belongings list completed. Complete and up to date summary report printed. SBAR report to be given at bedside with opportunity for questions.
--- NOTE | 2023-05-17 08:00 | NUR ---
OPENING NOTES: RECEIVED BEDSIDE SBAR FROM PM SHIFT NURSE, NO S/S OF ANY DISTRESS, NON LABOR BREATHING ABLE TO MAKE ALL NEEDS KNOWN, BED AT LOW AND LOCKED POSITION CALL LIGHT IN REACH, ALL SAFETY CHECKS DONE AND WILL DO THOUGHT THE DAY, WILL MONITOR AND GIVE MEDS PER ORDERS.
[2023-05-17] MEDS ORDERED: MECLIZINE HCL 25 MG TABLET (ANITVERT) PO PRN (10:00)
[2023-05-17] MEDS ORDERED: traZODone HCL 50 MG TABLET (DESYREL) PO PRN (10:00)
[2023-05-17] MEDS ORDERED: ONDANSETRON HCL 4 MG/2 ML VIAL IVP PRN (10:15)
--- NOTE | 2023-05-17 10:29 | NUR ---
CONSULT HEMATOLOGY PANCYTOPENIA JAGDEEP DUKE [phone] S/W [place] OFFICE
--- NOTE | 2023-05-17 10:33 | NUR ---
CONSULT GI CIRRHOSIS DR LIZARRAGA, [phone] S/W [place] OFFICE
--- NOTE | 2023-05-17 10:37 | NUR ---
CONSULT ID SEPSIS DR COOPER [phone] S/W [place] OFFICE
[2023-05-17] MEDS ORDERED: AMPICILLIN SODIUM 1 GM VIAL IV SCH (12:00)
[2023-05-17 12:29] VITALS: O2SAT 98
[2023-05-17] MEDS ORDERED: AMPICILLIN SODIUM 2 GM in NS 100 ML IV SCH (14:00)
[2023-05-17 14:03] VITALS: BP_SYST 88; PULSE 99; RESP 16; TEMP 96.9; O2SAT 95
[2023-05-17 15:07] LABS: BODY FLUID GLUCOSE 72 mg/dL; BODY FLUID TOTAL PROTEIN 0.8 g/dL
[2023-05-17] MEDS: SUCRALFATE 1 GM TABLET PO SCH ×2 (16:24→21:30)
[2023-05-17] MEDS: traMADol HCL HCL 50 MG TABLET (ULTRAM) PO PRN ×2 (16:24→22:39)
[2023-05-17] MEDS: NORMAL SALINE 5 ML DISP.SYRIN IVF SCH ×2 (16:25→22:12)
[2023-05-17 18:36] VITALS: BP_SYST 95; PULSE 105; RESP 20; TEMP 97.5; O2SAT 99
--- NOTE | 2023-05-17 18:50 | NUR ---
CLOSING NOTES: PATIENT REMAINED STABLE THOUGHT THE DAY, NO S/S OF ANY DISTRESS, NON LABOR BREATHING, ALL NEEDS WHERE MET TODAY, BED AT LOW AND LOCKED POSITION CALL LIGHT IN REACH, RESTING IN BED WATCHING TV, WILL GIVE PM SHIFT NURSE BEDSIDE SBAR.
[2023-05-17 20:00] VITALS: BP_SYST 86; PULSE 111; RESP 18; TEMP 96.4; O2SAT 96
[2023-05-17 21:00] VITALS: BP_SYST 86
--- NOTE | 2023-05-17 21:00 | NUR ---
OPENING NOTES PATIENT IS LYING IN BED AXO 3-4 WITH NO S/S. BREATHING IS EQUAL AND UNLABORED ON 2 L N/C. BP HAS BEEN SUSTAINING IN THE LOW 80s. PAGED DR SALGADO AND ORDERED NS BOLUS 1 LT. ADMINISTERED PAIN MEDICATION. SAFETY CHECKS ARE DONE, CALL LIGHT WITH IN REACH AND WILL CONTINUE TO MONITOR.
[2023-05-17] MEDS: CEFEPIME 2 GM in D5W 100 ML IV SCH (22:11)
[2023-05-17] MEDS ORDERED: NORMAL SALINE 10 ML VIAL IVP ONE (22:45)
[2023-05-17 23:24] LABS: APPEARANCE,SPUN,BODY FLUID HAZY (CLEAR); BF APPEARANCE UNSPUN CLOUDY (CLEAR); BODY FLUID COLOR YELLOW (LT YELLOW); BODY FLUID SOURCE/ TYPE PARACENTESIS; SOURCE/TYPE ,BODY FLUID PARACENTESIS; WBC, BODY FLUID 10942 /uL
[2023-05-17 23:25] LABS: RBC, BODY FLUID 5036 /uL
[2023-05-17 23:30] LABS: LYMPHOCYTES, BODY FLUID 1 %; MONOCYTES,BODY FLUID 26 %; NEUTROPHIL, BODY FLUID 72 %
[2023-05-17 23:31] LABS: EOSINOPHIL, BODY FLUID 1 %
[2023-05-18] VITALS (7 sets, daily range): BP systolic 88–101; PULSE 59–110; RESP 17–22; TEMP 96.6–97.5; O2SAT 96–99
--- NOTE | 2023-05-18 03:39 | NUR ---
ROUNDS PATIENT IS ASLEEP IN BED WITH NO S/S OF PAIN OR DISCOMFORT. BREATHING IS EQUAL AND UNLABORED ON 2 L NC. CHANGED PATIENT TWICE. IVF ARE RUNNING. SAFETY CHECKS DONE, CALL LIGHT WITH IN REACH, WILL CONTINUE TO MONITOR.
[2023-05-18] MEDS: NORMAL SALINE 5 ML DISP.SYRIN IVF SCH ×3 (06:00→21:46)
[2023-05-18] MEDS: LEVOTHYROXINE SODIUM 0.025 MG TABLET PO SCH (06:03)
[2023-05-18 06:10] LABS: BASOPHILS # (AUTO) 0.1 K/uL (0.0-0.2); BASOPHILS % (AUTO) 0.3 % (0.0-2.0); EOSINOPHILS % (AUTO) 0.1 % (0.0-4.0); HEMATOCRIT 24.6 % (36-48); HEMOGLOBIN 8.2 g/dL (12.0-16.0); LYMPHOCYTES # (AUTO) 2.2 K/uL (1.0-5.5); LYMPHOCYTES % (AUTO) 9.1 % (20.5-51.5); MEAN CORPUSCULAR HEMOGLOBIN 37 pg (27-31); MEAN CORPUSCULAR HGB CONC 33 % (32-36); MEAN CORPUSCULAR VOLUME 112 fL (79.0-98.0); MONOCYTES # (AUTO) 3.3 K/uL (0.0-1.0); NEUTROPHILS # (AUTO) 18.1 K/uL (1.8-7.7); NEUTROPHILS % (AUTO) 76.5 % (40.0-70.0); PLATELET COUNT (AUTO) 71 K/uL (130-430); RED BLOOD CELL COUNT(AUTO) 2.21 MIL/uL (4.2-6.2); RED CELL DISTRIBUTION WIDTH 20.9 % (9.0-15.0); RETICULOCYTE COUNT 5.3 % (0.5-1.5); WHITE BLOOD COUNT (AUTO) 23.7 K/uL (4.8-10.8)
[2023-05-18 06:26] LABS: ANION GAP 12 (5-15); CALCIUM 8.7 mg/dL (8.4-11.0); CHLORIDE 102 mmol/L (98-107); CREATININE 1.96 mg/dL (0.55-1.30); GLUCOSE 70 mg/dL (74-106); UREA NITROGEN, BLOOD 36 mg/dL (8-21)
[2023-05-18 06:34] LABS: TOTAL IRON BIND. CAPACITY 97 ug/dL (250-450)
--- NOTE | 2023-05-18 06:46 | NUR ---
CLOSING NOTES PATIENT IS ASLEEP IN BED WITH NO S/S OF DISTRESS OR DISCOMFORT. BREATHING IS EQUAL AND UNLABORED ON 2L NC. LINENS ARE CHANGED. IVF ARE RUNNING. ALL NEEDS WERE MET AT THIS TIME. SAFETY CHECKS DONE AND CALL LIGHT WITH IN REACH.
[2023-05-18] MEDS: SPIRONOLACTONE 50 MG TABLET (ALDACTONE) PO SCH (09:00)
[2023-05-18] MEDS: SUCRALFATE 1 GM TABLET PO SCH ×3 (09:05→21:46)
[2023-05-18] MEDS: FERROUS SULFATE 325 MG TABLET.DR PO SCH (09:05)
[2023-05-18] MEDS ORDERED: NACL 0.9% 1,000 ML IV ONE (09:15)
--- NOTE | 2023-05-18 09:15 | NUR ---
PATIENT BP IS LOW 86/48 NEW ORDERS FOR NS @[address] SALGADO.
[2023-05-18] MEDS: CEFEPIME 2 GM in D5W 100 ML IV SCH ×2 (09:25→21:46)
--- NOTE | 2023-05-18 10:58 | NUR ---
CONSULTATION PAGED/CALLED Reason for Consultation: [] HUSSEIN Person Who was Notified: [] NORBERTO Consulting Physician: [] DR Efren MICHAEL Inspector Metal Can Specialty: [] NEPHRO Ordering Physician: [] DR SALGADO
[2023-05-18 13:49] LABS: INR 2.1 (0.8-1.2)
--- NOTE | 2023-05-18 18:00 | NUR ---
CHANGED DRESSING ON RIGHT SIDE OF ABD X3 DRAINING YELLOW FLUID.
--- NOTE | 2023-05-18 18:42 | NUR ---
CLOSING NOTES: PATIENT REMAINED STABLE THOUGHT THE DAY NON LABOR BREATHING, NO S/S OF ANY DISTRESS ALL NEEDS WHERE MADE KNOWN, BED AT LOW AND LOCKED POSITION, CALL LIGHT IN REACH, WILL GIVE PM SHIFT NURSE BEDSIDE SBAR.
[2023-05-19] VITALS (11 sets, daily range): BP systolic 72–131; PULSE 65–111; RESP 16–22; TEMP 96–97.4; O2SAT 92–100
[2023-05-19] MEDS: LORazepam 2 MG/ML VIAL IVP PRN (00:47)
[2023-05-19 05:40] LABS: BASOPHILS # (AUTO) 0.1 K/uL (0.0-0.2); BASOPHILS % (AUTO) 0.3 % (0.0-2.0); EOSINOPHILS # (AUTO) 0.1 K/uL (0.0-0.4); EOSINOPHILS % (AUTO) 0.7 % (0.0-4.0); ERYTHROCYTE SEDIMENTATION RATE 32 MM/HR (0-20); HEMATOCRIT 22.5 % (36-48); HEMOGLOBIN 7.5 g/dL (12.0-16.0); LYMPHOCYTES # (AUTO) 1.9 K/uL (1.0-5.5); LYMPHOCYTES % (AUTO) 9.7 % (20.5-51.5); MEAN CORPUSCULAR HEMOGLOBIN 38 pg (27-31); MEAN CORPUSCULAR HGB CONC 34 % (32-36); MEAN CORPUSCULAR VOLUME 112 fL (79.0-98.0); MONOCYTES # (AUTO) 2.7 K/uL (0.0-1.0); NEUTROPHILS # (AUTO) 14.6 K/uL (1.8-7.7); NEUTROPHILS % (AUTO) 75.3 % (40.0-70.0); PLATELET COUNT (AUTO) 56 K/uL (130-430); RED BLOOD CELL COUNT(AUTO) 2.01 MIL/uL (4.2-6.2); RED CELL DISTRIBUTION WIDTH 20.3 % (9.0-15.0); WHITE BLOOD COUNT (AUTO) 19.4 K/uL (4.8-10.8)
[2023-05-19 06:02] LABS: ALANINE AMINOTRANSFERASE 38 U/L (12-78); ALBUMIN 1.1 g/dL (3.4-4.8); ANION GAP 8 (5-15); ASPARTATE AMINOTRANSFERASE 85 U/L (10-37); CALCIUM 8.5 mg/dL (8.4-11.0); CHLORIDE 103 mmol/L (98-107); CREATININE 2.03 mg/dL (0.55-1.30); GLUCOSE 79 mg/dL (74-106); PHOSPHORUS 4.8 mg/dL (2.7-4.5); TOTAL BILIRUBIN 7.1 mg/dL (0.0-1.0); UREA NITROGEN, BLOOD 43 mg/dL (8-21)
[2023-05-19] MEDS: NORMAL SALINE 5 ML DISP.SYRIN IVF SCH ×3 (06:32→22:00)
[2023-05-19] MEDS: LEVOTHYROXINE SODIUM 0.025 MG TABLET PO SCH ×2 (06:32→06:41)
[2023-05-19] MEDS: SUCRALFATE 1 GM TABLET PO SCH ×3 (08:56→21:00)
[2023-05-19] MEDS: traMADol HCL HCL 50 MG TABLET (ULTRAM) PO PRN ×3 (08:56→17:13)
[2023-05-19] MEDS: SPIRONOLACTONE 50 MG TABLET (ALDACTONE) PO SCH (08:58)
[2023-05-19] MEDS: FERROUS SULFATE 325 MG TABLET.DR PO SCH (08:58)
[2023-05-19] MEDS: CEFEPIME 2 GM in D5W 100 ML IV SCH ×2 (08:59→23:25)
[2023-05-19] MEDS ORDERED: MIDODRINE HCL 5 MG TABLET (PROAMATINE) PO ONE (09:15)
[2023-05-19 12:07] LABS: FERRITIN 467 ng/mL (15-150)
--- NOTE | 2023-05-19 12:23 | NUR ---
SENT PACKET OVER FOR MRS PEREA TO [facility] AT [facility] FAX#[phone] DL#[phone] STILL NEEDS PT NOTES.
[2023-05-19] MEDS: VANCOMYCIN HCL 500 MG in NS 100 ML IV SCH (12:47)
[2023-05-19 14:06] LABS: FOLATE (FOLIC ACID) 4.9 ng/mL (>3.0)
--- NOTE | 2023-05-19 14:36 | NUR ---
CM follow up with Maday ATKINSON [facility]. Maday informed that patient daughter Kathy prefers [facility]. Maday will send out referral and update CM on accepting SNF
[2023-05-19] MEDS ORDERED: LACTULOSE 20 GM/30 ML UDC PO ONE (19:15)
--- NOTE | 2023-05-19 20:15 | NUR ---
RECEIVED PATIENT IN BED LETHARGIC WITH LOW BLOOD PRESSURES OF 79/59 HR 91, 94/51, 72/48 HR 95 AND 88/47 HR 94. CHARGE NURSE AND CONSTRUCTION CARPENTER NOTIFIED. RAPID RESPONSE CALLED AND DR. SALGADO PAGED TO BE NOTIFIED. Edmundo BARBER RN.
--- NOTE | 2023-05-19 20:20 | NUR ---
DR. SALGADO CALLED BACK AND NOTIFIED OF PATIENT'S CONDITION. ORDERS GIVEN FOR 1 [address] BOLUS AND PL[address] PATIENT ON TELE. Edmundo BARBER RN.
--- NOTE | 2023-05-19 20:23 | NUR ---
NS BOLUS STARTED AND TELE MONITOR PLACED ON PATIENT. Edmundo BARBER RN.
[2023-05-19] MEDS ORDERED: DEXTROSE 50% JECT 50 ML DISP.SYRIN IVP PRN (20:30)
[2023-05-19] MEDS ORDERED: GLUCOSE (DEXTROSE) ORAL GEL -Adults PO PRN (20:30)
[2023-05-19] MEDS ORDERED: D5W 1,000 ML IV PRN (20:30)
--- NOTE | 2023-05-19 20:30 | NUR ---
PATIENT BLOOD GLUCOSE 60 AND RECHECKED AND WAS 59. DR. SALGADO CALLED AND NOTIFIED. ORDERS GIVEN TO TRANSFER TO ICU. Edmundo BARBER RN.
--- NOTE | 2023-05-19 20:40 | NUR ---
D50 IVP GIVEN ORDERED. Edmundo BARBER RN.
[2023-05-19] MEDS ORDERED: NACL 0.9% 1,000 ML IV ONE (20:45)
--- NOTE | 2023-05-19 20:57 | NUR ---
PATIENT BLOOD SUGAR NOW 120 AND BLOOD PRESSURE NOT 79/49 HR 92. WAITING FOR BED ASSIGNMENT FOR ICU. Edmundo BARBER RN.
[2023-05-19] MEDS: MIDODRINE HCL 5 MG TABLET (PROAMATINE) PO SCH (21:00)
--- NOTE | 2023-05-19 21:05 | NUR ---
PATIENT TRANSFERRED TO ICU BED 6. REPORT GIVEN TO GUILLERMINA ABRAHAM. Edmundo BARBER RN.
--- NOTE | 2023-05-19 21:11 | NUR ---
TELEMETRY TRANSFER TRENCH DIGGING MACHINE OPERATOR called on Pt for low BP. Pt received to ICU6 via bed accompanied by Tele staff. Pt alert/ confused to self, time and place. IVF infusing into left AC 18ga. O2 NC 3L in use. Pt had a paracentesis 2 days ago and is oozing from site. Pt SR on monitor, BP 112/69. Addendum: 05/19/23 at 2359 by Ro Santiago RN TELEMETRY TRANSFER 05/19/20231 TRENCH DIGGING MACHINE OPERATOR called on Pt for low BP. Pt received to ICU6 via bed accompanied by Tele staff. Pt alert/ confused to self, time and place. IVF infusing into left AC 18ga. O2 NC 3L in use. Pt had a paracentesis 2 days ago and is oozing from site. Pt SR on monitor, BP 112/69. Report received from Maggie Vareal RN.
--- NOTE | 2023-05-19 22:41 | NUR ---
DR SUJATHA Kam notified after Pt was transferred to ICU. Orders received. 1.IVF D5NS @ 100ml/hr 2. Levophed per pharmacy protocol to maintain SBP. 3.Insert long Cath to monitor urine output. 4.Consult Dr Bentley for Critical care
--- NOTE | 2023-05-19 22:52 | NUR ---
RD Recommendations *Continue on Regular per MD Rx -Please consider renal diet modifier once PO intakes improve *Recommend Suplena TID with meals to help with meeting nutrient needs (ONS provides additional 1260 kcals and 32 gm of protein per day. Monitor and evaluate PO intakes, GI, skin, labs. Please refer to RD Assessment 05/19/23 for details SHERRELL GARZA Addendum: 05/19/23 at [address] Amended: Links added.
[2023-05-19] MEDS ORDERED: NOREPINEPHRINE BITARTRATE 4 MG in D5W 246 ML IV PRN (23:00)
[2023-05-19] MEDS: D5NS 1,000 ML IV SCH (23:07)
--- NOTE | 2023-05-19 23:17 | NUR ---
CONSULTATION PAGED/CALLED Reason for Consultation: Critical Care Person Who was Notified: Kathleen Rojo Consulting Physician: Dr Bentley Partnership Manager Specialty: Pulmonary Ordering Physician: Dr Ramachandran
[2023-05-19] MEDS ORDERED: NOREPINEPHRINE 4 MG/4 ML VIAL IV ONE (23:38)
[2023-05-20] VITALS (24 sets, daily range): BP systolic 80–152; PULSE 57–101; RESP 12–23; TEMP 96.5–98.5; O2SAT 93–100
--- NOTE | 2023-05-20 01:00 | NUR ---
REPORT TAKEN PT HAD TRANSFER FROM TELE FLOOR. RECEIVED PATIENT IN BED STILL LETHARGIC WITH LOW BLOOD PRESSURES OF 79/59 HR 91, AND LEVO STARTED AT 0.1MCG/KG/MIN. RAPID RESPONSE CALLED ON PT ON THE TELE FLOOR AND PT TRANSFER TO ICU
--- NOTE | 2023-05-20 01:05 | NUR ---
PT CONFUSED PT ONLY ORIENTED TO NAME AND SPEECH IS GARGLED
--- NOTE | 2023-05-20 01:30 | NUR ---
MRSA FOR NARES COLLECTED AND SENT
--- NOTE | 2023-05-20 03:00 | NUR ---
F/C PLACED ORDER OBTAINED FOR F/C AFTER BLADDER SCAN SHOW 600ML OF URINE
[2023-05-20 06:06] LABS: HEPATITIS A AB, IgM Negative (Negative); HEPATITIS B CORE AB, IgM Negative (Negative); HEPATITIS B SURFACE AG Negative (Negative)
--- NOTE | 2023-05-20 06:30 | NUR ---
MEDS HELD AM MED NOT GIVEN R/T CHANGE IN PT CONDITION AND ALERTNESS
[2023-05-20] MEDS: LEVOTHYROXINE SODIUM 0.025 MG TABLET PO SCH (06:41)
[2023-05-20] MEDS: NORMAL SALINE 5 ML DISP.SYRIN IVF SCH ×3 (06:42→22:04)
[2023-05-20] MEDS: D5NS 1,000 ML IV SCH ×2 (09:00→22:04)
[2023-05-20] MEDS: RIFAXIMIN 550 MG TABLET PO SCH ×2 (09:00→21:00)
[2023-05-20] MEDS: FERROUS SULFATE 325 MG TABLET.DR PO SCH (09:00)
[2023-05-20] MEDS: SUCRALFATE 1 GM TABLET PO SCH ×2 (09:00→21:00)
[2023-05-20] MEDS: MIDODRINE HCL 5 MG TABLET (PROAMATINE) PO SCH ×2 (09:00→21:00)
[2023-05-20] MEDS: LACTULOSE 20 GM/30 ML UDC PO SCH ×2 (09:00→21:00)
[2023-05-20] MEDS: CEFEPIME 2 GM in D5W 100 ML IV SCH ×2 (09:00→22:00)
[2023-05-20 09:01] LABS: ANION GAP 7 (5-15); CALCIUM 8.5 mg/dL (8.4-11.0); CHLORIDE 106 mmol/L (98-107); CREATININE 2.09 mg/dL (0.55-1.30); GLUCOSE 86 mg/dL (74-106); UREA NITROGEN, BLOOD 51 mg/dL (8-21)
[2023-05-20] MEDS: VANCOMYCIN HCL 500 MG in NS 100 ML IV SCH ×2 (12:42→13:01)
[2023-05-20] MEDS ORDERED: FUROSEMIDE 40 MG/4 ML VIAL IVP ONE (15:15)
--- NOTE | 2023-05-20 18:00 | NUR ---
DOCTORS MADE AWARE OF UNABLE NTO GIVE MEDS DUE TO PATIENT BEING LETHARGIC.INFECTION CONTROL MD MADE AWARE OF ABNORMAL LAB WORKS INCLUDING HGB,INR,PLATELET,BILIRUBIMN AND CBC.SPOKE WITH RE LOW URINE OUTPUT,LASIX GIVEN.VISITORS CAME AND UPDATED WITH CURRENT CONDITION.
--- NOTE | 2023-05-20 19:48 | NUR ---
Phoned paged DR PHIL SALGADO MD FOR ORDERS patient needing MIDLINE / PICC LINE IV return call pending .
--- NOTE | 2023-05-20 20:31 | NUR ---
phoned family Regarding consent for PICC line voice mail left call back pending / .
--- NOTE | 2023-05-20 23:29 | NUR ---
Reposition & turning off loading with pillows HOB elevated patient is non verbal comfort measures implemented activity tolerated / monitor .
[2023-05-21] VITALS (23 sets, daily range): BP systolic 91–138; PULSE 85–106; RESP 13–22; TEMP 96.3–98; O2SAT 93–100
--- NOTE | 2023-05-21 03:34 | NUR ---
LORAZEPAM 1 MG IVP GIVEN FOR ACUTE AGITATION / monitor .
[2023-05-21] MEDS: LORazepam 2 MG/ML VIAL IVP PRN (03:36)
[2023-05-21] MEDS: D5NS 1,000 ML IV SCH (05:00)
[2023-05-21 05:23] LABS: BASOPHILS # (AUTO) 0.1 K/uL (0.0-0.2); BASOPHILS % (AUTO) 0.3 % (0.0-2.0); EOSINOPHILS # (AUTO) 0.3 K/uL (0.0-0.4); EOSINOPHILS % (AUTO) 1.4 % (0.0-4.0); HEMATOCRIT 24.4 % (36-48); HEMOGLOBIN 8.1 g/dL (12.0-16.0); LYMPHOCYTES # (AUTO) 1.6 K/uL (1.0-5.5); LYMPHOCYTES % (AUTO) 7.1 % (20.5-51.5); MEAN CORPUSCULAR HEMOGLOBIN 37 pg (27-31); MEAN CORPUSCULAR HGB CONC 33 % (32-36); MEAN CORPUSCULAR VOLUME 111 fL (79.0-98.0); MONOCYTES # (AUTO) 2.4 K/uL (0.0-1.0); NEUTROPHILS # (AUTO) 17.6 K/uL (1.8-7.7); NEUTROPHILS % (AUTO) 80.2 % (40.0-70.0); PLATELET COUNT (AUTO) 64 K/uL (130-430)
[2023-05-21 05:37] LABS: ERYTHROCYTE SEDIMENTATION RATE 48 MM/HR (0-20)
[2023-05-21 05:46] LABS: ANION GAP 8 (5-15); CALCIUM 8.4 mg/dL (8.4-11.0); CHLORIDE 104 mmol/L (98-107); CREATININE 2.08 mg/dL (0.55-1.30); GLUCOSE 81 mg/dL (74-106); PHOSPHORUS 4.9 mg/dL (2.7-4.5); UREA NITROGEN, BLOOD 54 mg/dL (8-21)
[2023-05-21] MEDS: LEVOTHYROXINE SODIUM 0.025 MG TABLET PO SCH (06:16)
[2023-05-21] MEDS: NORMAL SALINE 5 ML DISP.SYRIN IVF SCH ×3 (06:16→21:07)
[2023-05-21] MEDS: FERROUS SULFATE 325 MG TABLET.DR PO SCH (09:00)
[2023-05-21] MEDS: RIFAXIMIN 550 MG TABLET PO SCH ×2 (09:00→21:00)
[2023-05-21] MEDS: SUCRALFATE 1 GM TABLET PO SCH ×4 (09:00→21:00)
[2023-05-21] MEDS: MIDODRINE HCL 5 MG TABLET (PROAMATINE) PO SCH ×2 (09:00→21:00)
[2023-05-21] MEDS: LACTULOSE 20 GM/30 ML UDC PO SCH ×2 (09:00→21:08)
[2023-05-21] MEDS: CEFEPIME 2 GM in D5W 100 ML IV SCH ×2 (09:35→21:07)
--- NOTE | 2023-05-21 14:17 | NUR ---
CN: The pt was transferred to ICU on 05/19 around midnight dt low bp. now on Vasopressor. Urology consult for blood in urine is pending
[2023-05-21 17:25] LABS: PROTHROMBIN TIME 20.1 SECS (9.5-12.5)
[2023-05-22] VITALS (24 sets, daily range): BP systolic 98–140; PULSE 89–105; RESP 13–18; TEMP 96.5–97; O2SAT 96–100
[2023-05-22 04:42] LABS: BASOPHILS % (AUTO) 0.2 % (0.0-2.0); EOSINOPHILS # (AUTO) 0.3 K/uL (0.0-0.4); EOSINOPHILS % (AUTO) 1.8 % (0.0-4.0); HEMATOCRIT 22.7 % (36-48); HEMOGLOBIN 7.5 g/dL (12.0-16.0); LYMPHOCYTES # (AUTO) 1.9 K/uL (1.0-5.5); LYMPHOCYTES % (AUTO) 11.3 % (20.5-51.5); MEAN CORPUSCULAR HEMOGLOBIN 37 pg (27-31); MEAN CORPUSCULAR HGB CONC 33 % (32-36); MEAN CORPUSCULAR VOLUME 112 fL (79.0-98.0); MONOCYTES # (AUTO) 2.3 K/uL (0.0-1.0); MONOCYTES % (AUTO) 13.7 % (1.7-9.3); NEUTROPHILS # (AUTO) 12.5 K/uL (1.8-7.7); PLATELET COUNT (AUTO) 57 K/uL (130-430); RED BLOOD CELL COUNT(AUTO) 2.03 MIL/uL (4.2-6.2); RED CELL DISTRIBUTION WIDTH 20.4 % (9.0-15.0); WHITE BLOOD COUNT (AUTO) 17.1 K/uL (4.8-10.8)
[2023-05-22 04:44] LABS: ERYTHROCYTE SEDIMENTATION RATE 27 MM/HR (0-20)
[2023-05-22] MEDS: NORMAL SALINE 5 ML DISP.SYRIN IVF SCH ×3 (05:10→20:47)
[2023-05-22] MEDS: LEVOTHYROXINE SODIUM 0.025 MG TABLET PO SCH (05:10)
[2023-05-22 05:11] LABS: ALANINE AMINOTRANSFERASE 37 U/L (12-78); ALBUMIN 0.8 g/dL (3.4-4.8); ANION GAP 9 (5-15); ASPARTATE AMINOTRANSFERASE 114 U/L (10-37); CALCIUM 7.5 mg/dL (8.4-11.0); CHLORIDE 109 mmol/L (98-107); CREATININE 2.13 mg/dL (0.55-1.30); GLUCOSE 373 mg/dL (74-106); PHOSPHORUS 4.2 mg/dL (2.7-4.5); UREA NITROGEN, BLOOD 51 mg/dL (8-21)
[2023-05-22] MEDS ORDERED: FUROSEMIDE 40 MG/4 ML VIAL IVP ONE (10:00)
[2023-05-22] MEDS: LACTULOSE 20 GM/30 ML UDC PO SCH ×2 (10:02→20:45)
[2023-05-22] MEDS: FERROUS SULFATE 325 MG TABLET.DR PO SCH (10:02)
[2023-05-22] MEDS: MIDODRINE HCL 5 MG TABLET (PROAMATINE) PO SCH ×2 (10:02→20:45)
[2023-05-22] MEDS: RIFAXIMIN 550 MG TABLET PO SCH ×2 (10:02→20:45)
[2023-05-22] MEDS: SUCRALFATE 1 GM TABLET PO SCH ×3 (10:02→20:44)
[2023-05-22] MEDS: CEFEPIME 2 GM in D5W 100 ML IV SCH ×2 (10:02→20:47)
[2023-05-22] MEDS: VANCOMYCIN HCL 500 MG in NS 100 ML IV SCH (12:12)
[2023-05-22] MEDS: D5NS 1,000 ML IV SCH (14:52)
--- NOTE | 2023-05-22 16:33 | NUR ---
Nutrition F/U Admitting Diagnosis: Urinary Tract Infection Reviewed Pertinent Medical/Surgical Hx: Medical Record Medical History Comment: Per H&P (05/17/23), pt is a 73 YOF with PMH of liver cirrhosis and hepatitis C, anemia, insomnia. 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 Per progress note (05/22/23): HUSSEIN due to acute tubular necrosis (ATN) in setting of infection, hepatic encephalopathy Subjective Information RD attended ICU rounds. RN reported pt very lethargic and confused. Levophed PRN is off. Oxygen: 2L via nasal cannula. RN reports possible NGT placement to administer lactulose. RD rounded to pt bedside. Pt asleep at time of visit, not arousable to knocking on door or calling of name. CBW 189#/85.8kg via bedscale -- stable since last visit. Per EMR review, no recorded PO since last visit (05/19). Pt requires max assistance w/ eating. RD noted that breakfast tray was untouched on meal delivery cart -- likely that pt was too lethargic to eat this morning. Unable to observe pt's physical status d/t covered in linens. Current Diet Order/Nutrition Support: Regular Diet x 5 days Patient/Significant Other: Unable To Verbalize Education Provided: Not Indicated NEW Pertinent Medications: Lactulose, Abx, ferrous sulfate, IVF NEW Pertinent Labs 05/22 H/H 7.5L/22.5L, Na 136 WNL, BUN 51 H - worsening, Cre 2.13 H - worsening, Phos 4.2 WNL, Ammonia 44 H - improving Anthropometrics: Height: 5'4 Weight: 185#/83.9kg -- stable since last visit Body Mass Index: 31.75 kg/m2 %IBW: 154 [place]/Adjusted Body Weight: IBW 120 lbs. +/-10%; ABW 134 lbs. r/t geriat and obesity Recent Weight Change: Unable to obtain weight history Weight Status: Obese Gastrointestinal Symptoms: None Last BM: May 22, 2023 Food Allergies: Per EMR, NKFA NEW Skin Integrity Comment: Hector Score 12 05/22 - worsening Skin intact; jaundiced Edema: none documented Current % PO Negligible (<25%) Estimated Energy Expenditure (kcals/day) 5910-4683 kcals/day (30-35 kcals/kg of ABW 61 kg for geriat maintenance) Estimated Protein Required (g/day) 50-67 gm/day (0.6-0.8 gm/kg of CBW 84 kg r/t altered renal labs) Estimated Fluid Required (l/day) per MD Rx MODIFIED Problem/Etiology/Signs/Symptoms *Altered nutrition-related labs r/t endocrine/renal dysfunction AEB (05/22/23) H/H 7.5L/22.5L, BUN 51H, Cre 2.13H, Ammonia 44 H (Ongoing) *Inadequate protein/energy intake r/t poor appetite AEB reported inadequate PO intake x5 days. (Ongoing) NEW Expected Outcomes/Goals *PO intakes to meet at least 75% of estimated nutrient needs without GI complications *Improved/stable nutrition-related labs *Maintain skin integrity * Monitor provision and tolerance of TF nutrition support w/ goal of meeting >95% of estimated nutritional needs, labs trending WNL, normal GI function, and skin integrity/wt maintenance. Dietitian Recommendations * Continue on Regular per MD Rx * If NGT placed and negligble PO intake persists, recommend Suplena TF 5 cans/day via NGT. TF provides daily: 2100kcal, 53g protein -- this meets 98% of upper end of estimated energy needs and 106% of lower end of estimated protein needs. Follow Up High Risk: F/U in 2-3days Follow Up By May 25, 2023
[2023-05-22] MEDS: FUROSEMIDE 40 MG/4 ML VIAL IVP SCH (18:52)
[2023-05-22] MEDS: ALBUMIN HUMAN 25% 50 ML IV SCH ×2 (18:53→20:46)
[2023-05-22] MEDS: VANCOMYCIN HCL 1,000 MG in NS 250 ML IV SCH (21:23)
[2023-05-23] VITALS (24 sets, daily range): BP systolic 97–140; PULSE 96–104; RESP 13–17; TEMP 96.7–98; O2SAT 95–100
[2023-05-23] MEDS: ALBUMIN HUMAN 25% 50 ML IV SCH (04:00)
[2023-05-23] MEDS: NORMAL SALINE 5 ML DISP.SYRIN IVF SCH ×3 (05:41→22:00)
[2023-05-23 05:59] LABS: INR 2.2 (0.8-1.2); PROTHROMBIN TIME 21.7 SECS (9.5-12.5)
[2023-05-23 06:13] LABS: ANION GAP 8 (5-15); CHLORIDE 106 mmol/L (98-107); CREATININE 2.12 mg/dL (0.55-1.30); GLUCOSE 252 mg/dL (74-106); UREA NITROGEN, BLOOD 57 mg/dL (8-21)
[2023-05-23 07:53] LABS: MEAN CORPUSCULAR HEMOGLOBIN 37 pg (27-31); MEAN CORPUSCULAR HGB CONC 33 % (32-36); MEAN CORPUSCULAR VOLUME 112 fL (79.0-98.0); PLATELET COUNT (AUTO) 59 K/uL (130-430); RED CELL DISTRIBUTION WIDTH 20.1 % (9.0-15.0); WHITE BLOOD COUNT (AUTO) 18.7 K/uL (4.8-10.8)
[2023-05-23 07:54] LABS: ALBUMIN 1.2 g/dL (3.4-4.8); BILIRUBIN,DIRECT 4.7 mg/dL (0.0-0.3); TOTAL BILIRUBIN 6.2 mg/dL (0.0-1.0)
[2023-05-23] MEDS: FUROSEMIDE 40 MG/4 ML VIAL IVP SCH ×2 (08:17→17:13)
[2023-05-23] MEDS: CEFEPIME 2 GM in D5W 100 ML IV SCH ×2 (08:18→22:39)
[2023-05-23] MEDS: LEVOTHYROXINE SODIUM 0.025 MG TABLET PO SCH (08:18)
--- NOTE | 2023-05-23 08:32 | NUR ---
DR BELTRÁN HERE AND SEEN PT, PER RN MD EDUARDO SAID TO KEPT THE OGT FOR NOW AND DEFLATE THE RHINO ROCKETS. Addendum: 05/23/23 at 0854 by Marko Avendano RN CORRECTION: PLS DISREGARD THIS NOTES, THIS BELONGS TO ANOTHER PT.
[2023-05-23 08:40] LABS: RED BLOOD CELL COUNT(AUTO) 1.69 MIL/uL (4.2-6.2)
[2023-05-23 08:41] LABS: HEMOGLOBIN 6.2 g/dL (12.0-16.0)
--- NOTE | 2023-05-23 08:50 | NUR ---
SPOKE WITH ADAM REQUESTING ORDERS FROM DR. DONOVAN, PER RN REQUEST.
[2023-05-23] MEDS: LACTULOSE 20 GM/30 ML UDC PO SCH ×4 (09:09→23:13)
[2023-05-23] MEDS: SUCRALFATE 1 GM TABLET PO SCH ×3 (09:09→23:13)
[2023-05-23] MEDS: FERROUS SULFATE 325 MG TABLET.DR PO SCH (09:10)
[2023-05-23 09:11] LABS: BAND % (MANUAL) 14 % (0-6)
[2023-05-23] MEDS: RIFAXIMIN 550 MG TABLET PO SCH ×2 (09:11→23:13)
[2023-05-23] MEDS: MIDODRINE HCL 5 MG TABLET (PROAMATINE) PO SCH ×2 (09:11→23:13)
[2023-05-23 09:12] LABS: BASOPHILS % (MANUAL) 0 % (0-2); EOSINOPHILS % (MANUAL) 0 % (0-7); LYMPHOCYTES % (MANUAL) 10 % (20-46); MONOCYTES % (MANUAL) 10 % (0-11)
[2023-05-23] MEDS: D5NS 1,000 ML IV SCH (10:49)
--- NOTE | 2023-05-23 12:56 | NUR ---
POWER OF ATTY PT'S BROTHER GIULIANO JULIO PRESENTED PT'S POA DOCUMENT. COPY IN CHART. THE POA STATED THAT IS OKAY TO GIVE INFORMATION TO PT'S DAUGHTERS AND PT'S SISTER SALIMA JULIO.
--- NOTE | 2023-05-23 15:00 | NUR ---
TRANSFUSION OF 1 UNIT OF PRBC STARTED. WILL CONT TO MONITOR PT.
--- NOTE | 2023-05-23 17:18 | NUR ---
DR LEE - RENAL SEEN PT. NO FAMILY AT BEDSIDE, MD AWARE OF LOW URINE OUTPUT AND EDEMA.
--- NOTE | 2023-05-23 19:13 | NUR ---
PT GETTING 2ND UNIT OF PRBC ORDERED. VITALS WNL, NO FEVER, NO SOB. ENDORSED TO NIGHT NURSE.
[2023-05-23] MEDS ORDERED: FUROSEMIDE 40 MG/4 ML VIAL IVP ONE (19:30)
[2023-05-23] MEDS ORDERED: FUROSEMIDE 100 MG in D5W 90 ML IV SCH (19:30)
[2023-05-23] MEDS ORDERED: metOLazone 5 MG TABLET PO ONE (19:30)
[2023-05-24] VITALS (23 sets, daily range): BP systolic 65–133; PULSE 90–121; RESP 10–21; TEMP 97.2–98.1; O2SAT 91–99
[2023-05-24] MEDS: VANCOMYCIN HCL 1,000 MG in NS 250 ML IV SCH (00:43)
--- NOTE | 2023-05-24 04:00 | NUR ---
OLD PARACENTESIS Pt oozing from old Paracentesis site Right Lower abdomen. Dressing applied over site.
[2023-05-24 05:29] LABS: BASOPHILS # (AUTO) 0.1 K/uL (0.0-0.2); BASOPHILS % (AUTO) 0.2 % (0.0-2.0); EOSINOPHILS # (AUTO) 0.1 K/uL (0.0-0.4); EOSINOPHILS % (AUTO) 0.3 % (0.0-4.0); HEMATOCRIT 26.4 % (36-48); HEMOGLOBIN 8.8 g/dL (12.0-16.0); LYMPHOCYTES # (AUTO) 3.4 K/uL (1.0-5.5); LYMPHOCYTES % (AUTO) 9.4 % (20.5-51.5); MEAN CORPUSCULAR HEMOGLOBIN 33 pg (27-31); MEAN CORPUSCULAR HGB CONC 33 % (32-36); MEAN CORPUSCULAR VOLUME 100 fL (79.0-98.0); MONOCYTES # (AUTO) 3.6 K/uL (0.0-1.0); NEUTROPHILS # (AUTO) 29.2 K/uL (1.8-7.7); NEUTROPHILS % (AUTO) 80.1 % (40.0-70.0); PLATELET COUNT (AUTO) 52 K/uL (130-430); RED BLOOD CELL COUNT(AUTO) 2.64 MIL/uL (4.2-6.2); RED CELL DISTRIBUTION WIDTH 22.5 % (9.0-15.0)
[2023-05-24 05:36] LABS: WHITE BLOOD COUNT (AUTO) 36.5 K/uL (4.8-10.8)
[2023-05-24 05:41] LABS: ANION GAP 11 (5-15); CALCIUM 8.6 mg/dL (8.4-11.0); CHLORIDE 108 mmol/L (98-107); GLUCOSE 179 mg/dL (74-106); UREA NITROGEN, BLOOD 62 mg/dL (8-21)
[2023-05-24] MEDS: NORMAL SALINE 5 ML DISP.SYRIN IVF SCH (05:41)
[2023-05-24] MEDS: D5NS 1,000 ML IV SCH (05:42)
--- NOTE | 2023-05-24 06:25 | NUR ---
DR SHEILA Wetzel notified regarding Pt having blood from NGT and heart rate increased to 120s. 200ml collected in canister. NGT feeding held, PT placed on low continuous suction. Feeding held per Dr Wetzel.
[2023-05-24] MEDS ORDERED: PANTOPRAZOLE SODIUM 40 MG/VIAL (PROTONIX) IVP SCH (07:00)
[2023-05-24] MEDS: LEVOTHYROXINE SODIUM 0.025 MG TABLET PO SCH (07:00)
[2023-05-24] MEDS ORDERED: PHYTONADIONE 10 MG/ML AMP SUBCUT ONE (07:00)
--- NOTE | 2023-05-24 07:16 | NUR ---
OPENING NOTE RCVD REPORT FROM OUTGOING NOC RN, ALL CARES ASSUMED.
--- NOTE | 2023-05-24 07:17 | NUR ---
STAT ABG ORDERED FOR CHANGE IN LOC PER MD BELTRÁN
--- NOTE | 2023-05-24 07:25 | NUR ---
DR. SOSA AT BEDSIDE, REPORT GIVEN, REQUESTED EGD FOR AM, WILL CONTACT FAMILY.
--- NOTE | 2023-05-24 07:26 | NUR ---
PER DR. WILSON, 4 UNITS FFP ORDERED TO BE STARTED AT 0300 AND FINISH BY 0800. CHARGE AWARE AND WILL BE ENDORSED TO NOC RN.
--- NOTE | 2023-05-24 07:28 | NUR ---
DR. LEIGH ANN MENDOZA MD WILL SEE PATIENT AT BEDSIDE FOR POTENTIAL INTUBATION.
[2023-05-24] MEDS ORDERED: OCTREOTIDE ACETATE 1,250 MCG in NS 243.75 ML IV SCH (07:45)
[2023-05-24] MEDS ORDERED: OCTREOTIDE ACETATE 50 MCG/ML AMP IV ONE (07:45)
--- NOTE | 2023-05-24 08:16 | NUR ---
SPOKE WITH SISTER ( SALIMA) OVER PHONE, ALL UPDATES GIVEN, SALIMA STATED SHE IS CALLING PATIENTS DAUGHTER TO DISCUSS CODE STATUS. EVAN AWARE OF FULL CODE STATUS AT THIS TO INCLUDE INTUBATION.
--- NOTE | 2023-05-24 09:12 | NUR ---
PER POA PATIENT CODE STATUS CHANGED DNR / DNI
--- NOTE | 2023-05-24 09:15 | NUR ---
MD BELTRÁN AWARE OF CODE STATUS CHANGE
[2023-05-24] MEDS ORDERED: MORPHINE 4 MG INJ. 4 MG/ML VIAL ONE (09:18)
[2023-05-24] MEDS ORDERED: LORazepam 2 MG/ML VIAL ONE (09:19)
--- NOTE | 2023-05-24 09:20 | NUR ---
MD BELTRÁN SIGNED NEW CODE STATUS DNR/DNI
--- NOTE | 2023-05-24 09:30 | NUR ---
DR. BELTRÁN MAKING ROUNDSMD SPOKE WITH FAMILY AT BEDSIDE IN LENGTH.
--- NOTE | 2023-05-24 09:35 | NUR ---
PER DR. BELTRÁN, STOP ALL ORDERS START COMFORT CARE PLAN AND TREATMENT. ORDERS PLACED
--- NOTE | 2023-05-24 09:45 | NUR ---
FAMILY REMAINS AT BEDSIDE, ALL QUESTIONS ANSWERED.
--- NOTE | 2023-05-24 10:00 | NUR ---
ORAL CARE PROVIDED WITH TURNING FOR COMFORT CARE MEASURES.
[2023-05-24] MEDS: LORazepam 2 MG/ML VIAL IM PRN ×5 (10:17→16:59)
[2023-05-24] MEDS: MORPHINE 4 MG INJ. 4 MG/ML VIAL IVP PRN ×4 (10:31→16:59)
--- NOTE | 2023-05-24 10:57 | NUR ---
[facility] [address], [place] [address]
--- NOTE | 2023-05-24 12:25 | NUR ---
PATIENT MEDICATED PER MD ORDER, FAMILY REMAINS AT BEDSIDE.
--- NOTE | 2023-05-24 13:18 | NUR ---
I spoke w/ Yesenia at [facility] [phone]-she will have the enrobing machine operator call ICU to let the family know when he can come to the hospital.
--- NOTE | 2023-05-24 13:45 | NUR ---
REPOSITIONED FOR COMFORT WITH PILLOW SUPPORT, HEELS FLOATING.
[2023-05-24] MEDS ORDERED: NALOXONE HCL 0.4 MG/ML AMP (NARCAN) IVP PRN ×2 (14:00→17:45)
[2023-05-24] MEDS ORDERED: MORPHINE 2 MG/ML INJ. SYRINGE IVP PRN (14:00)
--- NOTE | 2023-05-24 15:45 | NUR ---
ORAL CARE PROVIDED, AREVALO CARE PROVIDED WITH FULL BED BATH, NEW GOWN APPLIED.
--- NOTE | 2023-05-24 16:45 | NUR ---
DAUGHTERS AT BEDSIDE, ALL QUESTIONS ANSWERED AND UPDATES GIVEN.
[2023-05-24] MEDS: MORPHINE SULFATE IN 0.9 % NACL 100 ML IV PRN (18:20)
--- NOTE | 2023-05-24 18:34 | NUR ---
TRANSFER ORDER PLACED FOR DOWNGRADE TO TELE FOR COMFORT MEASURES AND COMFORT CARE.
--- NOTE | 2023-05-24 19:05 | NUR ---
CLOSING NOTE REPORT GIVEN TO INCOMING NOC RN, ALL CARES ENDORSED.
--- NOTE | 2023-05-24 19:30 | NUR ---
PM SHIFT ASSESSMENT PATIENT RESTING IN BED, ON COMFORT CARE. FAMILY AT BEDSIDE, AWARE OF CURRENT POC. SAFETY PRECAUTIONS IN PLACE, WILL CONTINUE TO MONITOR.
--- NOTE | 2023-05-24 22:00 | NUR ---
TRANSFER TO TELE PATIENT TRANSFERRED TO TELE ROOM 124A. ALL BELONGINGS SENT WITH PATIENT. REPORT GIVEN BEDSIDE. FAMILY AWARE.
--- NOTE | 2023-05-24 23:13 | NUR ---
Nutrition F/U Admitting Diagnosis: Urinary Tract Infection Reviewed Pertinent Medical/Surgical Hx: Medical Record Medical History Comment: Per H&P (05/17/23), pt is a 73 YOF with PMH of liver cirrhosis and hepatitis C, anemia, insomnia. 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 Per progress note (05/22/23): HUSSEIN due to acute tubular necrosis (ATN) in setting of infection, hepatic encephalopathy. Per progress note (05/24/23): palliative and comfort care per request of family, profound shock with mean arterial pressure of 51, no intubation or resuscitation per request of family. Subjective Information During RD rounds, RD informed patient was moved from ICU to Tele as patients family requested comfort care. Tube feeding has been discontinued and patient is NPO. RD witnessed no TF running. Patients family members were in room at time of RD visit, patients daughter confirmed no feeding running and patient was in comfort care, nothing running except morphine. CBW 189#/85.8kg via bedscale -- stable since last visit. Per EMR review, no recorded PO since last visit (05/19). Per EMR, abdomen distended, firm, bowel sounds hypoactive, LBM documented 05/22. Current Diet Order/Nutrition Support: NPO x0 days Patient/Significant Other: Unable To Verbalize Education Provided: Not Indicated NEW Pertinent Medications: Lactulose, Abx, ferrous sulfate, IVF, morphine, zofran NEW Pertinent Labs 05/24 H/H 8.8L/26.4L, K 3.4L, Cl 108H, CO2 18L, BUN 62H, Crea 2.2H, GLuc 179H 05/22 H/H 7.5L/22.5L, Na 136 WNL, BUN 51 H - worsening, Cre 2.13 H - worsening, Phos 4.2 WNL, Ammonia 44 H - improving Anthropometrics: Height: 5'4 Weight: 185#/83.9kg Body Mass Index: 31.75 kg/m2 %IBW: 154 Convent/Adjusted Body Weight: IBW 120 lbs. +/-10%; ABW 134 lbs. r/t geriat and obesity Recent Weight Change: Unable to obtain weight history Weight Status: Obese Gastrointestinal Symptoms: None Last BM: May 22, 2023 Food Allergies: Per EMR, NKFA NEW Skin Integrity Comment: Hector Score 6 (05/24 worsening) Skin jaundiced: skin tear in anterior arm and right arm Edema: none documented Current % PO Negligible (<25%) Estimated Energy Expenditure (kcals/day) 0381-8892 kcals/day (30-35 kcals/kg of ABW 61 kg for geriat maintenance) Estimated Protein Required (g/day) 50-67 gm/day (0.6-0.8 gm/kg of CBW 84 kg r/t altered renal labs) Estimated Fluid Required (l/day) per MD Rx MODIFIED Problem/Etiology/Signs/Symptoms *Altered nutrition-related labs r/t endocrine/renal dysfunction AEB K 3.4L, Cl 108H, CO2 18L, BUN 62H, Crea 2.2H, GLuc 179H (Ongoing) *Inadequate protein/energy intake r/t poor appetite AEB reported inadequate PO intake x7 days. (Ongoing) NEW Expected Outcomes/Goals *PO intakes to meet at least 75% of estimated nutrient needs without GI complications *Improved/stable nutrition-related labs *Maintain skin integrity * Monitor provision and tolerance of TF nutrition support w/ goal of meeting >95% of estimated nutritional needs, labs trending WNL, normal GI function, and skin integrity/wt maintenance. Dietitian Recommendations * Continue on NPO per MD Rx r/t palliative and comfort care per request of family * If tube feeding initiated, recommend Su[place] TF 5 cans/day via NGT. TF provides daily: 2100kcal, 53g protein -- this meets 98% of upper end of estimated energy needs and 106% of lower end of estimated protein needs. Follow Up High Risk: F/U in 2-3days
--- NOTE | 2023-05-24 23:14 | NUR ---
Dietitian Recommendations * Continue on NPO per MD Rx r/t palliative and comfort care per request of family * If tube feeding initiated, recommend Su[place]ena TF 5 cans/day via NGT. TF provides daily: 2100kcal, 53g protein -- this meets 98% of upper end of estimated energy needs and 106% of lower end of estimated protein needs. Please refer to Nutrition F/U Assessment 05/24 for details RM, RDN
[2023-05-25] VITALS: BP_SYST 77; PULSE 95; RESP 18; TEMP 97.5; O2SAT 99
--- NOTE | 2023-05-25 00:50 | NUR ---
COMMUNICATION W/ DR. JUNI ALFREDO (BANDER FOR DR SOSA) HAS PAGED BACK AT THIS TIME. MD WAS MADE AWARE THAT PATIENT'S FAMILY IS REFUSING THE EGD FOR THE MORNING, AND HAS CHANGED HER CODE STATUS TO DNR. ALSO ASKED MD TO CLARIFY HOW MANY UNITS OF PLASMA SHOULD BE GIVEN TO THE PATIENT, MD VERBALIZED TO CANCEL PLASMA ORDERED SINCE PATIENT IS NOW DNR. ALL ORDERS READ BACK AND VERIFIED. CHARGE NURSE AND FIRE WATCHMAN ALSO MADE AWARE FOR GI SCHEDULING.
[2023-05-25] MEDS ORDERED: MORPHINE SULFATE IN 0.9 % NACL 100 ML IV ONE (06:32)
[2023-05-25] MEDS: MORPHINE SULFATE IN 0.9 % NACL 100 ML IV PRN (06:38)
--- NOTE | 2023-05-25 06:50 | NUR ---
CLOSING NOTE NO CHANGES. PATIENT SHOWS NO PAIN PER FLACC SCALE, SHE REMAINS ON MORPHINE DRIP 4 MG/HOUR. FAMILY HAS BEEN AT BEDSIDE THROUGHOUT THE NIGHT. HER SBP THROUGHOUT THE NIGHT WAS BETWEEN MID 60'S- LOW 70'S. SHE IS ON 3L NASAL CANNULA WITH OXYGEN SATURATION AT 96%. HYGIENE CARE PROVIDED THIS MORNING, FRESH LINENS ALSO PROVIDED. WILL CONTINUE TO MONITOR UNTIL REPORT IS GIVEN AT BEDSIDE TO AM NURSE.
[2023-05-25 07:44] VITALS: BP_SYST 58; PULSE 97; RESP 18; TEMP 97.3; O2SAT 93
[2023-05-25 08:00] VITALS: O2SAT 93
[2023-05-25 13:03] VITALS: BP_SYST 101; PULSE 69; RESP 19; TEMP 97.2; O2SAT 97
[2023-05-25 13:12] VITALS: BP_SYST 65; PULSE 96; RESP 17; TEMP 97.4; O2SAT 96
[2023-05-25 16:08] VITALS: BP_SYST 50; PULSE 76; RESP 15; TEMP 97.1; O2SAT 87
--- NOTE | 2023-05-25 16:45 | NUR ---
Note Pt's family requested since start of shift that pt be left alone with no lab draws or tests to be done. Pt has O2 at 3L/nc and Morphine Drip at 4mg/hr running through [place] PICC. Pt's family at bedside throughout the shift sharing with and speaking to pt. RN and CALL CENTER RN checked on pt throughout the shift for needs and care. Pt was maintained with safety precautions and bed in low position. Pt at 1645, 2 RN's verified passing GUILLERMINA Fragoso and supervisor in chargeGUILLERMINA Gaffney. Pt's Morphine Drip was dc'd and all equipment was dc'd.
--- NOTE | 2023-05-25 16:59 | NUR ---
INFORMED THE GROUP OF DR HAYWOOD THAT PT AT 1644. SPOKE TO LIU
--- NOTE | 2023-05-25 17:08 | NUR ---
INFORMED SONJA COOPER AND SHEILA THAT PT AT 1645. SPOKE TO STEPHANIE.
--- NOTE | 2023-05-25 17:11 | NUR ---
INFORMED PULMO MD DR BELTRÁN THAT PT AT 1645. SPOKE TO TAWANA.
--- NOTE | 2023-05-25 17:13 | NUR ---
ONCO/DIAZ MD DR DONOVAN WAS NOTIFIED THE AT 1645. SPOKE TO EMMY. UROLOGIST DR Octavia OWENS WAS ALSO CALLED FOR PT'S INFO. LEFT A VOICE MESSAGE.
--- NOTE | 2023-05-25 18:20 | NUR ---
[facility] WAS INFORMED THAT THE [facility]ER SHOULD BE PICKED UP. SPOKE TO ALEENA WHO TOOK ALL THE INFORMATION. [place] WILL CALL TO GIVE THE ETA. REMINDED GUILLERMINA PARIKH TO ENDORSE TO THE NEXT SHIFT TO FOLLOW UP THE [facility] [employer] TIME SHOULD NO CALL BE RECEIVED. [place] TEL # - [phone]
--- NOTE | 2023-05-25 19:00 | NUR ---
End of shift Pt was transferred to temporary mortuary for [facility] pickup tonight. Attempts were made to call Kathy Catherine at [phone], there is always a busy signal.
== END 2023-05-25 16:45 | DRG 871 ==
LOC: SED 20:23 → SMU 05-17 03:11 → SIC 05-19 21:11 → STU 05-24 22:39
PROVIDERS: ADMIT Specialist; ATTEND Specialist
PROC: 0W9G3ZZ Drainage of Peritoneal Cavity, Percutaneous Approach (ICD-10-PCS; principal; 2023-05-16)
PROC: 02HV33Z Insertion of Infusion Device into Superior Vena Cava, Percutaneous Approach (ICD-10-PCS; 2023-05-21)
PROC: B548ZZA Ultrasonography of Superior Vena Cava, Guidance (ICD-10-PCS; 2023-05-21)
PROC: 30233N1 Transfusion of Nonautologous Red Blood Cells into Peripheral Vein, Percutaneous Approach (ICD-10-PCS; 2023-05-23)
DX: A41.9 Sepsis, unspecified organism (principal); E43 Unspecified severe protein-calorie malnutrition; J96.00 Acute respiratory failure, unspecified whether with hypoxia or hypercapnia; K65.2 Spontaneous bacterial peritonitis; R65.21 Severe sepsis with septic shock; N39.0 Urinary tract infection, site not specified; D61.818 Other pancytopenia; E87.1 Hypo-osmolality and hyponatremia; R18.8 Other ascites; K76.6 Portal hypertension; N17.9 Acute kidney failure, unspecified; K74.60 Unspecified cirrhosis of liver; D73.1 Hypersplenism; B18.2 Chronic viral hepatitis C; E83.39 Other disorders of phosphorus metabolism; E88.09 Other disorders of plasma-protein metabolism, not elsewhere classified; E66.9 Obesity, unspecified; Z66 Do not resuscitate; R74.01 Elevation of levels of liver transaminase levels; R73.9 Hyperglycemia, unspecified; D63.8 Anemia in other chronic diseases classified elsewhere; K76.82 Hepatic encephalopathy; B95.2 Enterococcus as the cause of diseases classified elsewhere; Z68.33 Body mass index [BMI] 33.0-33.9, adult; Z87.440 Personal history of urinary (tract) infections
CPT/HCPCS: 36415; 36600; 49083; 70450-TC; 71045; 76376; 76705; 80048; 80053; 80074; 80076; 80202; 81000; 82140; 82607; 82728; 82746; 82803; 82947; 83540; 83550; 83605; 83690; 83735; 84100; 84157; 85007; 85025; 85027; 85044; 85610-TC; 85651-TC; 85730-TC; 86886; 86900; 86901; 86920; 87040; 87070-TC; 87081; 87086; 87186-TC; 89051-TC; 89060-TC; 96374; 97530-GP; 99291; A6209; G0378; J0290; J0692; J0696; J1885; J1940; J2001; J2060; J2270; J2354; J2405; J3370; J7030; J7042; J7050; J7060; P9021; P9046